=== PATIENT | female | born 1935 | race Caucasian/White ===

== ENCOUNTER 2024-04-19 08:33 | Inpatient (IN) | payer MEDICARE, BC ==
[~2024-04-19] VITALS: Ht 162.6 cm; Wt 54.9 kg
[~2024-04-19 08:33] MED LIST: AMOX1TAB15 PO
[2024-04-19] MEDS: IV NS 0.9% 1,000 ML BAG IV ONE (09:06)
[2024-04-19 09:23] LABS: BASOPHILS # (AUTO) 0.1 K/uL (0.0-0.2); BASOPHILS % (AUTO) 0.5 % (0.0-2.0); EOSINOPHILS % (AUTO) 0.1 % (0.0-6.0); HEMATOCRIT 33 % (33-45); HEMOGLOBIN 10.7 g/dL (11.5-14.8); LYMPHOCYTES % (AUTO) 5.8 % (20.0-44.0); MEAN CORPUSCULAR HEMOGLOBIN 28 PG (26.0-33.0); MEAN CORPUSCULAR HGB CONC 32 g/dl (31.0-36.0); MEAN CORPUSCULAR VOLUME 86 fL (82-100); MONOCYTES # (AUTO) 1.4 K/uL (0.1-1.30); MONOCYTES % (AUTO) 7.6 % (2.0-12.0); NEUTROPHILS # (AUTO) 15.4 K/uL (1.8-8.9); PLATELET COUNT (AUTO) 236 K/uL (150-450); RED BLOOD CELL COUNT(AUTO) 3.87 MIL/uL (4.0-5.2); RED CELL DISTRIBUTION WIDTH 19.4 % (11.5-15.0)
[2024-04-19 09:36] LABS: CALCIUM, SERUM 10.6 mg/dL (8.5-10.1); CARBON DIOXIDE 31 mmol/L (21-32); CHLORIDE 107 mmol/L (98-107); CREATININE 0.6 mg/dL (0.6-1.3); GLUCOSE 133 mg/dL (74-106); POTASSIUM 3.2 mmol/L (3.5-5.1); SODIUM SERUM 144 mmol/L (136-145); UREA NITROGEN, BLOOD 25 mg/dL (7-18)
[2024-04-19 09:37] LABS: SERUM AMMONIA 19 umol/L (11-32)
[2024-04-19 09:41] LABS: INR 1.06 (0.91-1.10); PARTIAL THROMBOPLASTIN TIME 25.5 SEC (24.3-34.3); PROTHROMBIN TIME 11.2 SECS (9.2-11.1)
[2024-04-19 09:44] LABS: LACTIC ACID 0.9 mmol/L (0.4-2.0)
[2024-04-19 09:50] LABS: ALANINE AMINOTRANSFERASE 13 U/L (12-78); ALBUMIN 1.6 g/dL (3.4-5.0); ALCOHOL, BLOOD < 3 mg/dL (0-10); ALKALINE PHOSPHATASE 186 U/L (46-116); ASPARTATE AMINOTRANSFERASE 8 U/L (15-37); BILIRUBIN,DIRECT 0.2 mg/dL (0.0-0.2); BILIRUBIN,TOTAL 0.3 mg/dL (0.2-1.0); TOTAL PROTEIN, SERUM 6.3 g/dL (6.4-8.2)
[2024-04-19] MEDS: PIPERACILLIN /TAZOBACTAM 3.375 G in IV D5W 50 ML IV ONE (10:05)
[2024-04-19] MEDS: VANCOMYCIN 1 GM in IV D5W 250 ML IV ONE (10:33)
[2024-04-19 10:35] LABS: APPEARANCE,URINE Slightly Cloudy (CLEAR); BILIRUBIN,URINE SMALL (NEGATIVE); BLOOD, URINE Trace-intact Ery/uL (NEGATIVE); COLOR,URINE YELLOW (YELLOW); KETONES,URINE Negative (NEGATIVE); LEUKOCYTE ESTERASE ,URINE Moderate (NEGATIVE); NITRITE, URINE Negative (NEGATIVE); PH,URINE 5.5 (5.0-8.0); PROTEIN,URINE 30 mg/dl (NEGATIVE); UGLUCOSE Negative (NEGATIVE); UROBILINOGEN,URINE 0.2 EU/dL (0.2)
[2024-04-19 10:47] LABS: AMPHETAMINE, URINE NEGATIVE (NEGATIVE); BARBITURATE, URINE NEGATIVE (NEGATIVE); BENZODIAZEPINE, URINE NEGATIVE (NEGATIVE); CANNABINOID, URINE NEGATIVE (NEGATIVE); COCCAINE, URINE NEGATIVE (NEGATIVE); OPIATE, URINE NEGATIVE (NEGATIVE); PHENCYCLIDINE SCREEN,URINE NEGATIVE (NEGATIVE)
[2024-04-19 10:51] LABS: ADD URINE CULTURE YES; BACTERIA,URINE 1+ /HPF (None Seen); WBC,URINE 21-50 /HPF (0-3)
[2024-04-19] MEDS ORDERED: CALC3.7S NS (11:19)
[2024-04-19] MEDS ORDERED: UBID200C35 PO (11:19)
[2024-04-19] MEDS ORDERED: FERR325T23 PO (11:19)
[2024-04-19] MEDS ORDERED: FURO20TA4 PO (11:19)
[2024-04-19] MEDS ORDERED: AMLO-213 PO (11:19)
[2024-04-19] MEDS ORDERED: ASPI-1420 PO (11:19)
[2024-04-19] MEDS ORDERED: ASCO-352 PO (11:19)
[2024-04-19] MEDS ORDERED: ACET325T53 PO ×2 (11:19)
[2024-04-19] MEDS ORDERED: ZINC57OI4 TP (11:19)
[2024-04-19] MEDS ORDERED: INSU100V39 SQ (11:19)
[2024-04-19] MEDS ORDERED: ZINC220C6 PO (11:19)
[2024-04-19] MEDS ORDERED: SENN8.6T19 PO (11:19)
[2024-04-19] MEDS ORDERED: ONDA4TAB11 PO (11:19)
[2024-04-19] MEDS ORDERED: GUAI600T31 PO (11:19)
[2024-04-19] MEDS ORDERED: MULT-213 PO (11:19)
[2024-04-19] MEDS ORDERED: ENOX30DI5 SQ (11:19)
[2024-04-19] MEDS ORDERED: METO25TA4 PO (11:19)
[2024-04-19] MEDS ORDERED: METF-440 PO (11:19)
[2024-04-19] MEDS ORDERED: VITS42.53 TP (11:19)
[2024-04-19] MEDS ORDERED: CLON0.1T PO (11:19)
[2024-04-20] MEDS: VANCOMYCIN 1 GM in IV D5W 250 ML IV ONE (07:23)
[2024-04-20] MEDS: PIPERACILLIN /TAZOBACTAM 3.375 G in IV D5W 50 ML IV ONE (07:30)
[2024-04-20] MEDS ORDERED: ACETAMINOPHEN 325 MG TABLET PO PRN (10:00)
[2024-04-20] MEDS ORDERED: ONDANSETRON HCL/PF 4 MG/2 ML VIAL IVP PRN (10:00)
[2024-04-20] MEDS ORDERED: IV NS 0.9% 1,000 ML IV PRN (10:00)
[2024-04-20] MEDS ORDERED: DEXTROSE 50%-WATER 50 ML DISP.SYRIN IV PRN (10:30)
[2024-04-20] MEDS: ENSURE ENLIVE 237 ML LIQUID (VANILLA) PO SCH (13:00)
[2024-04-20] MEDS ORDERED: FUROSEMIDE 20 MG/2 ML VIAL ONE (13:06)
[2024-04-20] MEDS: FUROSEMIDE 20 MG/2 ML VIAL IV ONE (13:10)
[2024-04-20] MEDS: ZOSYN IVPB 3.375 G in IV D5W 50ml IV SCH (18:43)
[2024-04-20 18:56] VITALS: BP 118/63; TEMP 96.5; O2SAT 96
[2024-04-20] MEDS: BLOOD SUGAR DIAGNOSTIC 1 EACH STRIP IN SCH (19:33)
[2024-04-20 20:00] VITALS: BP 143/67; TEMP 97.8; O2SAT 95
[2024-04-20] MEDS: CIPROFLOXACIN HCL 0.3% 5 ML BOTTLE OT SCH (21:30)
[2024-04-20] MEDS: ENOXAPARIN SODIUM 40 MG/0.4 ML DISP.SYRIN SQ SCH (22:27)
[2024-04-21] VITALS: BP 145/60; TEMP 97.2; O2SAT 94
[2024-04-21] MEDS: INSULIN REGULAR, HUMAN 100 UNIT/ML 3 ML VIAL SQ PRN (00:28)
[2024-04-21] MEDS: POTASSIUM CHLORIDE 20 MEQ POWDER PACKET PO ONE (02:18)
[2024-04-21 04:00] VITALS: BP 157/54; TEMP 97.2; O2SAT 92
[2024-04-21] MEDS: VANCOMYCIN 1 GM in IV D5W 250ml IV SCH (05:32)
[2024-04-21 07:25] LABS: BASOPHILS % (AUTO) 0.1 % (0.0-2.0); EOSINOPHILS # (AUTO) 0.1 K/uL (0.0-0.7); EOSINOPHILS % (AUTO) 0.4 % (0.0-6.0); HEMATOCRIT 31 % (33-45); HEMOGLOBIN 10.1 g/dL (11.5-14.8); LYMPHOCYTES # (AUTO) 0.5 K/uL (0.8-4.8); LYMPHOCYTES % (AUTO) 4.2 % (20.0-44.0); MEAN CORPUSCULAR HEMOGLOBIN 28 PG (26.0-33.0); MEAN CORPUSCULAR HGB CONC 32 g/dl (31.0-36.0); MEAN CORPUSCULAR VOLUME 87 fL (82-100); MONOCYTES # (AUTO) 0.8 K/uL (0.1-1.30); MONOCYTES % (AUTO) 6.6 % (2.0-12.0); NEUTROPHILS # (AUTO) 10.8 K/uL (1.8-8.9); NEUTROPHILS % (AUTO) 88.7 % (43.0-81.0); PLATELET COUNT (AUTO) 284 K/uL (150-450); RED BLOOD CELL COUNT(AUTO) 3.62 MIL/uL (4.0-5.2); RED CELL DISTRIBUTION WIDTH 18.4 % (11.5-15.0); WHITE BLOOD COUNT (AUTO) 12.1 K/uL (4.3-11.0)
[2024-04-21 07:49] LABS: CALCIUM, SERUM 9.8 mg/dL (8.5-10.1); CREATININE 0.8 mg/dL (0.6-1.3); MAGNESIUM 1.9 mg/dL (1.8-2.4); POTASSIUM 4.1 mmol/L (3.5-5.1)
[2024-04-21 08:00] VITALS: BP 118/54; TEMP 97.5; O2SAT 92
[2024-04-21 08:03] LABS: PHOSPHORUS 2.8 mg/dL (2.5-4.9)
[2024-04-21] MEDS: ASPIRIN EC 81 MG TABLET.DR PO SCH (08:34)
[2024-04-21] MEDS: ZINC SULFATE 220 MG CAPSULE PO SCH (08:34)
[2024-04-21] MEDS: MULTIVITAMIN/LUTEIN/MINERALS 1 TAB PO SCH (08:34)
[2024-04-21] MEDS: ASCORBIC ACID 500 MG TABLET PO SCH (08:34)
[2024-04-21] MEDS: FERROUS SULFATE (325 MG) 325 MG/TAB TABLET PO SCH (08:34)
[2024-04-21] MEDS: SENNOSIDES 8.6 MG TABLET PO SCH (08:34)
[2024-04-21] MEDS: METOPROLOL SUCCINATE 25 MG TAB.SR.24H PO SCH (08:35)
[2024-04-21] MEDS: AMLODIPINE BESYLATE 10 MG TABLET PO SCH (08:37)
[2024-04-21] MEDS: CALCITONIN,SALMON,SYNTHETIC 3.7 ML SPRAY.PUMP NS SCH (08:40)
[2024-04-21 12:00] VITALS: BP 128/58; TEMP 97.5; O2SAT 92
[2024-04-21 16:00] VITALS: BP 134/62; TEMP 97.8; O2SAT 92
[2024-04-21 20:00] VITALS: BP 158/62; TEMP 96.8; O2SAT 96
[2024-04-21] MEDS: CIPROFLOXACIN HCL 0.3% 5 ML BOTTLE EACHEYE SCH (22:00)
[2024-04-21] MEDS: FLUCONAZOLE (100 MG) 100 MG TABLET PO SCH (22:41)
[2024-04-22] VITALS (7 sets, daily range): BP systolic 149–172; BP diastolic 66–74; TEMP 94.4–98.1; O2SAT 90–98
[2024-04-22 07:22] LABS: CALCIUM, SERUM 9.7 mg/dL (8.5-10.1); CREATININE 0.6 mg/dL (0.6-1.3); POTASSIUM 3.7 mmol/L (3.5-5.1)
[2024-04-22] MEDS ORDERED: CALCITONIN,SALMON,SYNTHETIC 3.7 ML SPRAY.PUMP NS SCH (09:00)
[2024-04-22 15:26] LABS: ABG BASE EXCESS 9.2 mmol/L; ABG OXYGEN SATURATION 95.8 % (92.0-98.5); ABG PCO2 77.2 mmHg (35.0-45.0); ABG PH 7.308 (7.350-7.450); ABG PO2 82.7 mmHg (75.0-100.0); ABG TOTAL HEMOGLOBIN 11.1 G/dL (12.0-16.0); AaDO2 113.7 mmHg; COHb 0.4 % (0.5-1.5); MetHb 0.1 % (0.0-1.5); O2Hb 95.3 % (94.0-97.0); SITE, ABG Right Radial; VENT MODE, BG 5L NASAL CANNULA
[2024-04-22] MEDS ORDERED: CLOTRIMAZOLE/BETAMETASONE DIPROPIONATE 15 GM TUBE TP SCH (17:00)
[2024-04-22] MEDS: CLOTRIMAZOLE/BETAMETASONE DIPROPIONATE 15 GM TUBE TP SCH (21:08)
[2024-04-23] VITALS (27 sets, daily range): BP systolic 87–165; BP diastolic 50–105; TEMP 96.7–98.3; O2SAT 90–99
[2024-04-23] MEDS: VANCOMYCIN 750 MG in IV D5W 250 ML IV SCH (05:58)
[2024-04-23 07:27] LABS: BASOPHILS % (AUTO) 0.3 % (0.0-2.0); EOSINOPHILS # (AUTO) 0.1 K/uL (0.0-0.7); EOSINOPHILS % (AUTO) 1.1 % (0.0-6.0); HEMATOCRIT 34 % (33-45); LYMPHOCYTES # (AUTO) 0.8 K/uL (0.8-4.8); LYMPHOCYTES % (AUTO) 7.7 % (20.0-44.0); MEAN CORPUSCULAR HEMOGLOBIN 28 PG (26.0-33.0); MEAN CORPUSCULAR HGB CONC 32 g/dl (31.0-36.0); MEAN CORPUSCULAR VOLUME 86 fL (82-100); MONOCYTES # (AUTO) 0.9 K/uL (0.1-1.30); MONOCYTES % (AUTO) 8.9 % (2.0-12.0); NEUTROPHILS # (AUTO) 8.2 K/uL (1.8-8.9); PLATELET COUNT (AUTO) 231 K/uL (150-450); RED BLOOD CELL COUNT(AUTO) 3.95 MIL/uL (4.0-5.2); RED CELL DISTRIBUTION WIDTH 18.2 % (11.5-15.0)
[2024-04-23 08:13] LABS: CALCIUM, SERUM 9.1 mg/dL (8.5-10.1); CARBON DIOXIDE 36 mmol/L (21-32); CHLORIDE 103 mmol/L (98-107); CREATININE 0.5 mg/dL (0.6-1.3); GLUCOSE 153 mg/dL (74-106); MAGNESIUM 1.7 mg/dL (1.8-2.4); POTASSIUM 3.4 mmol/L (3.5-5.1); SODIUM SERUM 145 mmol/L (136-145); UREA NITROGEN, BLOOD 20 mg/dL (7-18)
[2024-04-23] MEDS: FUROSEMIDE 20 MG/2 ML VIAL IV ONE (08:37)
[2024-04-23] MEDS: PROSOURCE / PROSTAT (PYXIS) 30 ML UDC PO SCH (09:00)
[2024-04-23] MEDS: GLUCERNA SHAKE 237 ML CAN PO SCH (11:00)
[2024-04-23] MEDS: Magnesium 1GM/D5W 100ML PREMIX 100 ML IV SCH (11:22)
[2024-04-23] MEDS: POTASSIUM CL. PREMIX PERIPHER. 50 ML IV SCH (11:41)
[2024-04-23] MEDS: K PHOS NEUTRAL 250 MG TABLET PO ONE (16:24)
[2024-04-24] VITALS (25 sets, daily range): BP systolic 96–154; BP diastolic 42–85; TEMP 97.5–98; O2SAT 92–100
[2024-04-24 05:09] LABS: BASOPHILS % (AUTO) 0.4 % (0.0-2.0); EOSINOPHILS # (AUTO) 0.1 K/uL (0.0-0.7); EOSINOPHILS % (AUTO) 0.9 % (0.0-6.0); HEMATOCRIT 32 % (33-45); HEMOGLOBIN 10.3 g/dL (11.5-14.8); LYMPHOCYTES # (AUTO) 0.9 K/uL (0.8-4.8); LYMPHOCYTES % (AUTO) 9.5 % (20.0-44.0); MEAN CORPUSCULAR HEMOGLOBIN 28 PG (26.0-33.0); MEAN CORPUSCULAR HGB CONC 32 g/dl (31.0-36.0); MEAN CORPUSCULAR VOLUME 85 fL (82-100); MONOCYTES # (AUTO) 0.9 K/uL (0.1-1.30); MONOCYTES % (AUTO) 9.6 % (2.0-12.0); NEUTROPHILS # (AUTO) 7.7 K/uL (1.8-8.9); NEUTROPHILS % (AUTO) 79.6 % (43.0-81.0); PLATELET COUNT (AUTO) 225 K/uL (150-450); RED BLOOD CELL COUNT(AUTO) 3.73 MIL/uL (4.0-5.2); RED CELL DISTRIBUTION WIDTH 18.2 % (11.5-15.0); WHITE BLOOD COUNT (AUTO) 9.6 K/uL (4.3-11.0)
[2024-04-24 05:25] LABS: CALCIUM, SERUM 10.5 mg/dL (8.5-10.1); CHLORIDE 101 mmol/L (98-107); CREATININE 0.5 mg/dL (0.6-1.3); GLUCOSE 101 mg/dL (74-106); PHOSPHORUS 2.1 mg/dL (2.5-4.9); POTASSIUM 3.6 mmol/L (3.5-5.1); SODIUM SERUM 144 mmol/L (136-145); UREA NITROGEN, BLOOD 21 mg/dL (7-18)
[2024-04-24 05:38] LABS: CARBON DIOXIDE 44 mmol/L (21-32)
[2024-04-24] MEDS: NEUTRA PHOS 1 POWD.PACKET PO ONE (08:45)
[2024-04-24] MEDS: FUROSEMIDE 20 MG/2 ML VIAL IV SCH (11:04)
[2024-04-24] MEDS: acetaZOLAMIDE SODIUM 500 MG/VIAL VIAL IV ONE (11:05)
[2024-04-25] VITALS (24 sets, daily range): BP systolic 85–154; BP diastolic 45–78; TEMP 97.9–98.9; O2SAT 92–100
[2024-04-25] MEDS: IV NS 0.9% 250 ML IV PRN (04:44)
[2024-04-25 06:05] LABS: CALCIUM, SERUM 10.8 mg/dL (8.5-10.1); CHLORIDE 100 mmol/L (98-107); CREATININE 0.6 mg/dL (0.6-1.3); GLUCOSE 135 mg/dL (74-106); POTASSIUM 3.7 mmol/L (3.5-5.1); SODIUM SERUM 146 mmol/L (136-145); UREA NITROGEN, BLOOD 24 mg/dL (7-18)
[2024-04-25 06:08] LABS: CARBON DIOXIDE 44 mmol/L (21-32)
[2024-04-25] MEDS: NA PHOS,M-B/NA PHOS,DI-BA 1 EA ENEMA RC PRN (08:00)
[2024-04-25] MEDS: THERAHONEY GEL 1.5 OZ TUBE TP SCH (10:00)
[2024-04-25] MEDS: ENSURE ENLIVE CHOC 237 ML CAN PO SCH (13:30)
[2024-04-25] MEDS: DOCUSATE SODIUM 100 MG CAPSULE PO SCH (16:41)
[2024-04-25] MEDS: MEGESTROL ACETATE SUSP 400 MG/10 ML UDC PO SCH (16:41)
[2024-04-25] MEDS: MEROPENEM 1 G in IV NS 0.9% 100 ML IV SCH (16:41)
[2024-04-25] MEDS: POLYETHYLENE GLYCOL 3350 17 GM POWD.PACK PO SCH (16:41)
[2024-04-26] VITALS (26 sets, daily range): BP systolic 83–136; BP diastolic 42–78; TEMP 97.2–98.1; O2SAT 91–100
[2024-04-26 04:52] LABS: BASOPHILS % (AUTO) 0.3 % (0.0-2.0); EOSINOPHILS # (AUTO) 0.1 K/uL (0.0-0.7); EOSINOPHILS % (AUTO) 0.4 % (0.0-6.0); HEMATOCRIT 29 % (33-45); HEMOGLOBIN 9.3 g/dL (11.5-14.8); LYMPHOCYTES # (AUTO) 1.2 K/uL (0.8-4.8); LYMPHOCYTES % (AUTO) 9.7 % (20.0-44.0); MEAN CORPUSCULAR HEMOGLOBIN 28 PG (26.0-33.0); MEAN CORPUSCULAR HGB CONC 33 g/dl (31.0-36.0); MEAN CORPUSCULAR VOLUME 85 fL (82-100); MONOCYTES # (AUTO) 0.9 K/uL (0.1-1.30); MONOCYTES % (AUTO) 7.4 % (2.0-12.0); NEUTROPHILS # (AUTO) 10.3 K/uL (1.8-8.9); NEUTROPHILS % (AUTO) 82.2 % (43.0-81.0); PLATELET COUNT (AUTO) 166 K/uL (150-450); RED BLOOD CELL COUNT(AUTO) 3.36 MIL/uL (4.0-5.2); WHITE BLOOD COUNT (AUTO) 12.5 K/uL (4.3-11.0)
[2024-04-26 05:02] LABS: CALCIUM, SERUM 10.8 mg/dL (8.5-10.1); CREATININE 0.8 mg/dL (0.6-1.3); MAGNESIUM 1.9 mg/dL (1.8-2.4); PHOSPHORUS 3.7 mg/dL (2.5-4.9)
[2024-04-26 05:10] LABS: POTASSIUM 2.5 mmol/L (3.5-5.1)
[2024-04-26] MEDS: VANCOMYCIN 750 MG in IV D5W 250 ML IV SCH (06:07)
[2024-04-26] MEDS: POTASSIUM CL. PREMIX PERIPHER. 50 ML IV SCH (06:25)
[2024-04-26 08:39] LABS: ABG BASE EXCESS 18.6 mmol/L; ABG OXYGEN SATURATION 96.4 % (92.0-98.5); ABG PCO2 64.1 mmHg (35.0-45.0); ABG PH 7.467 (7.350-7.450); ABG PO2 78.6 mmHg (75.0-100.0); ABG TOTAL HEMOGLOBIN 11.1 G/dL (12.0-16.0); AaDO2 96.4 mmHg; COHb 0.7 % (0.5-1.5); O2Hb 95.7 % (94.0-97.0); SITE, ABG Right Radial; VENT MODE, BG BIPAP 15/5 30%
[2024-04-26] MEDS: POTASSIUM CHLORIDE 20 MEQ TAB.PRT.SR PO SCH (09:54)
[2024-04-27] VITALS (24 sets, daily range): BP systolic 112–142; BP diastolic 42–97; TEMP 97.2–97.9; O2SAT 90–99
[2024-04-27 04:45] LABS: BASOPHILS % (AUTO) 0.4 % (0.0-2.0); EOSINOPHILS # (AUTO) 0.1 K/uL (0.0-0.7); EOSINOPHILS % (AUTO) 1.1 % (0.0-6.0); HEMATOCRIT 27 % (33-45); HEMOGLOBIN 8.8 g/dL (11.5-14.8); LYMPHOCYTES # (AUTO) 1.1 K/uL (0.8-4.8); LYMPHOCYTES % (AUTO) 11.4 % (20.0-44.0); MEAN CORPUSCULAR HEMOGLOBIN 28 PG (26.0-33.0); MEAN CORPUSCULAR HGB CONC 33 g/dl (31.0-36.0); MEAN CORPUSCULAR VOLUME 85 fL (82-100); MONOCYTES # (AUTO) 0.8 K/uL (0.1-1.30); MONOCYTES % (AUTO) 8.5 % (2.0-12.0); NEUTROPHILS # (AUTO) 7.6 K/uL (1.8-8.9); NEUTROPHILS % (AUTO) 78.6 % (43.0-81.0); PLATELET COUNT (AUTO) 168 K/uL (150-450); RED BLOOD CELL COUNT(AUTO) 3.16 MIL/uL (4.0-5.2); RED CELL DISTRIBUTION WIDTH 18.9 % (11.5-15.0); WHITE BLOOD COUNT (AUTO) 9.6 K/uL (4.3-11.0)
[2024-04-27 05:33] LABS: ALANINE AMINOTRANSFERASE 10 U/L (12-78); ALKALINE PHOSPHATASE 130 U/L (46-116); ASPARTATE AMINOTRANSFERASE 6 U/L (15-37); BILIRUBIN,TOTAL 0.3 mg/dL (0.2-1.0); CALCIUM, SERUM 10.9 mg/dL (8.5-10.1); CHLORIDE 109 mmol/L (98-107); CREATININE 0.8 mg/dL (0.6-1.3); GLUCOSE 119 mg/dL (74-106); MAGNESIUM 2.1 mg/dL (1.8-2.4); PHOSPHORUS 3.2 mg/dL (2.5-4.9); SODIUM SERUM 151 mmol/L (136-145); TOTAL PROTEIN, SERUM 5.2 g/dL (6.4-8.2); UREA NITROGEN, BLOOD 29 mg/dL (7-18)
[2024-04-27 05:39] LABS: ALBUMIN 1.2 g/dL (3.4-5.0); CARBON DIOXIDE 41 mmol/L (21-32)
[2024-04-27] MEDS: ALBUMIN 25% 25 GM in PREMIX 1 EA IV SCH (06:40)
[2024-04-27] MEDS: ALBUMIN 25% 100 ML IV ONE (06:41)
[2024-04-27] MEDS: IV D5W 1,000 ML IV SCH (07:23)
[2024-04-27] MEDS: IV D5W 1,000 ML IV PRN (08:32)
[2024-04-27] MEDS: Z GUARD REMEDY 4 OZ OINT TP PRN (08:36)
[2024-04-28] VITALS (24 sets, daily range): BP systolic 105–148; BP diastolic 42–98; TEMP 97–97.8; O2SAT 94–100
[2024-04-28 04:31] LABS: BASOPHILS % (AUTO) 0.4 % (0.0-2.0); EOSINOPHILS # (AUTO) 0.1 K/uL (0.0-0.7); EOSINOPHILS % (AUTO) 1.4 % (0.0-6.0); HEMATOCRIT 25 % (33-45); HEMOGLOBIN 8.4 g/dL (11.5-14.8); LYMPHOCYTES % (AUTO) 11.8 % (20.0-44.0); MEAN CORPUSCULAR HEMOGLOBIN 28 PG (26.0-33.0); MEAN CORPUSCULAR HGB CONC 34 g/dl (31.0-36.0); MEAN CORPUSCULAR VOLUME 85 fL (82-100); MONOCYTES # (AUTO) 0.8 K/uL (0.1-1.30); MONOCYTES % (AUTO) 9.2 % (2.0-12.0); NEUTROPHILS # (AUTO) 6.5 K/uL (1.8-8.9); NEUTROPHILS % (AUTO) 77.2 % (43.0-81.0); PLATELET COUNT (AUTO) 155 K/uL (150-450); RED BLOOD CELL COUNT(AUTO) 2.94 MIL/uL (4.0-5.2); RED CELL DISTRIBUTION WIDTH 17.9 % (11.5-15.0); WHITE BLOOD COUNT (AUTO) 8.4 K/uL (4.3-11.0)
[2024-04-28 04:55] LABS: CALCIUM, SERUM 10.9 mg/dL (8.5-10.1); CARBON DIOXIDE 39 mmol/L (21-32); CHLORIDE 101 mmol/L (98-107); CREATININE 0.7 mg/dL (0.6-1.3); GLUCOSE 97 mg/dL (74-106); POTASSIUM 4.6 mmol/L (3.5-5.1); SODIUM SERUM 141 mmol/L (136-145); UREA NITROGEN, BLOOD 27 mg/dL (7-18)
[2024-04-29] VITALS (16 sets, daily range): BP systolic 104–134; BP diastolic 48–88; TEMP 98.2–99.1; O2SAT 95–98
[2024-04-29 05:15] LABS: BASOPHILS % (AUTO) 0.3 % (0.0-2.0); EOSINOPHILS # (AUTO) 0.1 K/uL (0.0-0.7); EOSINOPHILS % (AUTO) 1.2 % (0.0-6.0); HEMATOCRIT 25 % (33-45); HEMOGLOBIN 8.4 g/dL (11.5-14.8); LYMPHOCYTES # (AUTO) 1.3 K/uL (0.8-4.8); LYMPHOCYTES % (AUTO) 13.7 % (20.0-44.0); MEAN CORPUSCULAR HEMOGLOBIN 29 PG (26.0-33.0); MEAN CORPUSCULAR HGB CONC 34 g/dl (31.0-36.0); MEAN CORPUSCULAR VOLUME 85 fL (82-100); MONOCYTES # (AUTO) 0.8 K/uL (0.1-1.30); MONOCYTES % (AUTO) 8.2 % (2.0-12.0); NEUTROPHILS # (AUTO) 7.1 K/uL (1.8-8.9); NEUTROPHILS % (AUTO) 76.6 % (43.0-81.0); PLATELET COUNT (AUTO) 163 K/uL (150-450); RED BLOOD CELL COUNT(AUTO) 2.95 MIL/uL (4.0-5.2); RED CELL DISTRIBUTION WIDTH 18.2 % (11.5-15.0); WHITE BLOOD COUNT (AUTO) 9.2 K/uL (4.3-11.0)
[2024-04-29 05:26] LABS: CALCIUM, SERUM 9.7 mg/dL (8.5-10.1); CARBON DIOXIDE 35 mmol/L (21-32); CHLORIDE 98 mmol/L (98-107); CREATININE 0.9 mg/dL (0.6-1.3); GLUCOSE 132 mg/dL (74-106); POTASSIUM 5.2 mmol/L (3.5-5.1); SODIUM SERUM 133 mmol/L (136-145); UREA NITROGEN, BLOOD 32 mg/dL (7-18)
[2024-04-29] MEDS: GLUCERNA SHAKE 237 ML CAN PO SCH (12:02)
[2024-04-29] MEDS ORDERED: DEXTROSE 50%-WATER 50 ML DISP.SYRIN IV PRN (12:30)
[2024-04-29] MEDS: BLOOD SUGAR DIAGNOSTIC 1 EACH STRIP IN SCH (17:32)
[2024-04-29] MEDS: INSULIN REGULAR, HUMAN 100 UNIT/ML 3 ML VIAL SQ PRN (17:40)
[2024-04-29] MEDS: VANCOMYCIN 750 MG in IV D5W 250 ML IV SCH (18:02)
[2024-04-30] VITALS (7 sets, daily range): BP systolic 110–133; BP diastolic 42–63; TEMP 97.5–98.7; O2SAT 95–100
[2024-04-30 07:37] LABS: CALCIUM, SERUM 9.7 mg/dL (8.5-10.1); CARBON DIOXIDE 33 mmol/L (21-32); CHLORIDE 99 mmol/L (98-107); CREATININE 0.9 mg/dL (0.6-1.3); GLUCOSE 100 mg/dL (74-106); POTASSIUM 5.2 mmol/L (3.5-5.1); SODIUM SERUM 135 mmol/L (136-145); UREA NITROGEN, BLOOD 34 mg/dL (7-18)
[2024-04-30 07:51] LABS: BASOPHILS % (AUTO) 0.3 % (0.0-2.0); EOSINOPHILS # (AUTO) 0.1 K/uL (0.0-0.7); EOSINOPHILS % (AUTO) 0.7 % (0.0-6.0); HEMATOCRIT 28 % (33-45); LYMPHOCYTES % (AUTO) 13.3 % (20.0-44.0); MEAN CORPUSCULAR HEMOGLOBIN 28 PG (26.0-33.0); MEAN CORPUSCULAR HGB CONC 33 g/dl (31.0-36.0); MEAN CORPUSCULAR VOLUME 85 fL (82-100); MONOCYTES # (AUTO) 0.7 K/uL (0.1-1.30); MONOCYTES % (AUTO) 9.1 % (2.0-12.0); NEUTROPHILS # (AUTO) 5.8 K/uL (1.8-8.9); NEUTROPHILS % (AUTO) 76.6 % (43.0-81.0); PLATELET COUNT (AUTO) 162 K/uL (150-450); RED BLOOD CELL COUNT(AUTO) 3.25 MIL/uL (4.0-5.2); RED CELL DISTRIBUTION WIDTH 18.3 % (11.5-15.0); WHITE BLOOD COUNT (AUTO) 7.6 K/uL (4.3-11.0)
[2024-04-30] MEDS: FUROSEMIDE 20 MG/2 ML VIAL IV SCH (16:53)
[2024-05-01] VITALS: BP 105/76; TEMP 97.7; O2SAT 98
[2024-05-01 04:00] VITALS: BP 124/55; TEMP 98.1; O2SAT 98
[2024-05-01 06:56] LABS: BASOPHILS % (AUTO) 0.3 % (0.0-2.0); EOSINOPHILS # (AUTO) 0.1 K/uL (0.0-0.7); EOSINOPHILS % (AUTO) 0.6 % (0.0-6.0); HEMATOCRIT 25 % (33-45); HEMOGLOBIN 8.3 g/dL (11.5-14.8); LYMPHOCYTES # (AUTO) 0.9 K/uL (0.8-4.8); LYMPHOCYTES % (AUTO) 9.3 % (20.0-44.0); MEAN CORPUSCULAR HEMOGLOBIN 28 PG (26.0-33.0); MEAN CORPUSCULAR HGB CONC 33 g/dl (31.0-36.0); MEAN CORPUSCULAR VOLUME 85 fL (82-100); MONOCYTES # (AUTO) 0.7 K/uL (0.1-1.30); MONOCYTES % (AUTO) 7.2 % (2.0-12.0); NEUTROPHILS # (AUTO) 7.8 K/uL (1.8-8.9); NEUTROPHILS % (AUTO) 82.6 % (43.0-81.0); PLATELET COUNT (AUTO) 160 K/uL (150-450); RED BLOOD CELL COUNT(AUTO) 2.99 MIL/uL (4.0-5.2); RED CELL DISTRIBUTION WIDTH 18.2 % (11.5-15.0); WHITE BLOOD COUNT (AUTO) 9.4 K/uL (4.3-11.0)
[2024-05-01 07:20] LABS: CALCIUM, SERUM 9.6 mg/dL (8.5-10.1); CARBON DIOXIDE 37 mmol/L (21-32); CHLORIDE 100 mmol/L (98-107); CREATININE 0.8 mg/dL (0.6-1.3); GLUCOSE 113 mg/dL (74-106); POTASSIUM 5.3 mmol/L (3.5-5.1); SODIUM SERUM 136 mmol/L (136-145); UREA NITROGEN, BLOOD 40 mg/dL (7-18)
[2024-05-01 08:00] VITALS: BP 121/53; TEMP 97.9; O2SAT 98
[2024-05-01] MEDS: SODIUM POLYSTYRENE SULFONATE 15 G/60 ML BOTTLE PO ONE (11:45)
[2024-05-01] MEDS ORDERED: IOHEXOL-300 100 ML VIAL IV ONE (11:53)
[2024-05-01] MEDS ORDERED: IV NS 0.9% 250 ML IV ONE (11:54)
[2024-05-01] MEDS ORDERED: CT SWABBABLE VALVE TRANS SET 1 EA INFUS.SET MC ONE (11:54)
[2024-05-01 12:00] VITALS: BP 118/54; TEMP 97.9; O2SAT 95
[2024-05-01 16:00] VITALS: BP 117/56; TEMP 97.9; O2SAT 95
[2024-05-01] MEDS: ENSURE ENLIVE CHOC 237 ML CAN PO SCH (16:26)
[2024-05-01 20:00] VITALS: BP 130/61; TEMP 99.1; O2SAT 96
[2024-05-02] VITALS (7 sets, daily range): BP systolic 114–137; BP diastolic 51–70; TEMP 97.5–98.8; O2SAT 93–100
[2024-05-02 07:50] LABS: BASOPHILS # (AUTO) 0.1 K/uL (0.0-0.2); BASOPHILS % (AUTO) 0.7 % (0.0-2.0); EOSINOPHILS # (AUTO) 0.1 K/uL (0.0-0.7); EOSINOPHILS % (AUTO) 1.2 % (0.0-6.0); HEMATOCRIT 24 % (33-45); HEMOGLOBIN 7.9 g/dL (11.5-14.8); LYMPHOCYTES % (AUTO) 12.7 % (20.0-44.0); MEAN CORPUSCULAR HEMOGLOBIN 28 PG (26.0-33.0); MEAN CORPUSCULAR HGB CONC 33 g/dl (31.0-36.0); MEAN CORPUSCULAR VOLUME 85 fL (82-100); MONOCYTES # (AUTO) 0.7 K/uL (0.1-1.30); MONOCYTES % (AUTO) 8.6 % (2.0-12.0); NEUTROPHILS # (AUTO) 5.9 K/uL (1.8-8.9); NEUTROPHILS % (AUTO) 76.8 % (43.0-81.0); PLATELET COUNT (AUTO) 179 K/uL (150-450); WHITE BLOOD COUNT (AUTO) 7.6 K/uL (4.3-11.0)
[2024-05-02 09:50] LABS: ABG OXYGEN SATURATION 98.9 % (92.0-98.5); ABG PCO2 48.8 mmHg (35.0-45.0); ABG PO2 132.7 mmHg (75.0-100.0); ABG TOTAL HEMOGLOBIN 8.7 G/dL (12.0-16.0); AaDO2 9.4 mmHg; MetHb 0.2 % (0.0-1.5); O2Hb 97.7 % (94.0-97.0); SITE, ABG Right Radial; VENT MODE, BG 2L NC
[2024-05-03] VITALS (7 sets, daily range): BP systolic 118–150; BP diastolic 54–62; TEMP 97.3–98.9; O2SAT 94–98
[2024-05-03 07:09] LABS: BASOPHILS # (AUTO) 0.1 K/uL (0.0-0.2); BASOPHILS % (AUTO) 0.9 % (0.0-2.0); EOSINOPHILS % (AUTO) 0.7 % (0.0-6.0); HEMATOCRIT 25 % (33-45); HEMOGLOBIN 8.3 g/dL (11.5-14.8); LYMPHOCYTES # (AUTO) 0.8 K/uL (0.8-4.8); LYMPHOCYTES % (AUTO) 13.1 % (20.0-44.0); MEAN CORPUSCULAR HEMOGLOBIN 28 PG (26.0-33.0); MEAN CORPUSCULAR HGB CONC 33 g/dl (31.0-36.0); MEAN CORPUSCULAR VOLUME 85 fL (82-100); MONOCYTES # (AUTO) 0.5 K/uL (0.1-1.30); MONOCYTES % (AUTO) 8.7 % (2.0-12.0); NEUTROPHILS # (AUTO) 4.8 K/uL (1.8-8.9); NEUTROPHILS % (AUTO) 76.6 % (43.0-81.0); PLATELET COUNT (AUTO) 200 K/uL (150-450); RED BLOOD CELL COUNT(AUTO) 2.96 MIL/uL (4.0-5.2); RED CELL DISTRIBUTION WIDTH 18.2 % (11.5-15.0); WHITE BLOOD COUNT (AUTO) 6.3 K/uL (4.3-11.0)
[2024-05-03 07:39] LABS: CALCIUM, SERUM 9.4 mg/dL (8.5-10.1); CARBON DIOXIDE 32 mmol/L (21-32); CHLORIDE 100 mmol/L (98-107); CREATININE 0.9 mg/dL (0.6-1.3); GLUCOSE 109 mg/dL (74-106); POTASSIUM 5.6 mmol/L (3.5-5.1); SODIUM SERUM 135 mmol/L (136-145); UREA NITROGEN, BLOOD 48 mg/dL (7-18)
[2024-05-03] MEDS: SODIUM POLYSTYRENE SULFONATE 15 G/60 ML BOTTLE PO ONE (13:00)
[2024-05-04] VITALS (7 sets, daily range): BP systolic 122–154; BP diastolic 50–61; TEMP 97.2–98.5; O2SAT 93–96
[2024-05-04] MEDS: VANCOMYCIN 500 MG in IV D5W 100ml IV SCH (06:20)
[2024-05-04 06:40] LABS: BASOPHILS # (AUTO) 0.1 K/uL (0.0-0.2); BASOPHILS % (AUTO) 0.9 % (0.0-2.0); EOSINOPHILS # (AUTO) 0.1 K/uL (0.0-0.7); EOSINOPHILS % (AUTO) 0.8 % (0.0-6.0); HEMATOCRIT 26 % (33-45); HEMOGLOBIN 8.7 g/dL (11.5-14.8); LYMPHOCYTES % (AUTO) 15.1 % (20.0-44.0); MEAN CORPUSCULAR HEMOGLOBIN 29 PG (26.0-33.0); MEAN CORPUSCULAR HGB CONC 34 g/dl (31.0-36.0); MEAN CORPUSCULAR VOLUME 86 fL (82-100); MONOCYTES # (AUTO) 0.6 K/uL (0.1-1.30); MONOCYTES % (AUTO) 8.6 % (2.0-12.0); NEUTROPHILS # (AUTO) 4.8 K/uL (1.8-8.9); NEUTROPHILS % (AUTO) 74.6 % (43.0-81.0); PLATELET COUNT (AUTO) 244 K/uL (150-450); RED BLOOD CELL COUNT(AUTO) 3.05 MIL/uL (4.0-5.2); RED CELL DISTRIBUTION WIDTH 18.2 % (11.5-15.0); WHITE BLOOD COUNT (AUTO) 6.4 K/uL (4.3-11.0)
[2024-05-04 06:59] LABS: CALCIUM, SERUM 9.4 mg/dL (8.5-10.1); CARBON DIOXIDE 32 mmol/L (21-32); CHLORIDE 102 mmol/L (98-107); CREATININE 0.9 mg/dL (0.6-1.3); GLUCOSE 112 mg/dL (74-106); MAGNESIUM 2.6 mg/dL (1.8-2.4); PHOSPHORUS 4.2 mg/dL (2.5-4.9); POTASSIUM 5.6 mmol/L (3.5-5.1); SODIUM SERUM 137 mmol/L (136-145); UREA NITROGEN, BLOOD 47 mg/dL (7-18)
[2024-05-04] MEDS ORDERED: NEPRO VAN 237 ML CAN PO PRN (10:00)
[2024-05-04] MEDS: HYDROCHLOROTHIAZIDE 25 MG TABLET PO SCH (10:50)
[2024-05-04] MEDS ORDERED: CT SWABBABLE VALVE TRANS SET 1 EA INFUS.SET MC ONE (15:31)
[2024-05-04] MEDS ORDERED: IOHEXOL-300 100 ML VIAL IV ONE (15:31)
[2024-05-04] MEDS ORDERED: IV NS 0.9% 250 ML IV ONE (15:33)
[2024-05-04] MEDS: SODIUM POLYSTYRENE SULFONATE 15 G/60 ML BOTTLE PO ONE (20:49)
[2024-05-05] VITALS (7 sets, daily range): BP systolic 120–137; BP diastolic 55–61; TEMP 97.7–98.6; O2SAT 92–99
[2024-05-05 06:36] LABS: BASOPHILS # (AUTO) 0.1 K/uL (0.0-0.2); BASOPHILS % (AUTO) 1.3 % (0.0-2.0); EOSINOPHILS # (AUTO) 0.1 K/uL (0.0-0.7); EOSINOPHILS % (AUTO) 1.3 % (0.0-6.0); HEMATOCRIT 26 % (33-45); HEMOGLOBIN 8.9 g/dL (11.5-14.8); LYMPHOCYTES % (AUTO) 14.4 % (20.0-44.0); MEAN CORPUSCULAR HEMOGLOBIN 29 PG (26.0-33.0); MEAN CORPUSCULAR HGB CONC 34 g/dl (31.0-36.0); MEAN CORPUSCULAR VOLUME 85 fL (82-100); MONOCYTES # (AUTO) 0.5 K/uL (0.1-1.30); MONOCYTES % (AUTO) 7.2 % (2.0-12.0); NEUTROPHILS # (AUTO) 5.2 K/uL (1.8-8.9); NEUTROPHILS % (AUTO) 75.8 % (43.0-81.0); PLATELET COUNT (AUTO) 275 K/uL (150-450); RED CELL DISTRIBUTION WIDTH 17.8 % (11.5-15.0); WHITE BLOOD COUNT (AUTO) 6.9 K/uL (4.3-11.0)
[2024-05-05 07:51] LABS: CALCIUM, SERUM 9.1 mg/dL (8.5-10.1); CARBON DIOXIDE 29 mmol/L (21-32); CHLORIDE 99 mmol/L (98-107); CREATININE 0.8 mg/dL (0.6-1.3); GLUCOSE 104 mg/dL (74-106); MAGNESIUM 2.5 mg/dL (1.8-2.4); POTASSIUM 4.9 mmol/L (3.5-5.1); SODIUM SERUM 136 mmol/L (136-145)
[2024-05-05 08:06] LABS: UREA NITROGEN, BLOOD 53 mg/dL (7-18)
[2024-05-06] VITALS (8 sets, daily range): BP systolic 115–148; BP diastolic 53–59; TEMP 97.7–98.6; O2SAT 93–100
[2024-05-06 07:09] LABS: CALCIUM, SERUM 9.4 mg/dL (8.5-10.1); CARBON DIOXIDE 35 mmol/L (21-32); CHLORIDE 99 mmol/L (98-107); CREATININE 0.7 mg/dL (0.6-1.3); GLUCOSE 84 mg/dL (74-106); POTASSIUM 5.2 mmol/L (3.5-5.1); SODIUM SERUM 135 mmol/L (136-145); UREA NITROGEN, BLOOD 64 mg/dL (7-18)
[2024-05-06] MEDS: SODIUM POLYSTYRENE SULFONATE 15 G/60 ML BOTTLE PO ONE (11:37)
[2024-05-07] VITALS (8 sets, daily range): BP systolic 127–147; BP diastolic 49–70; TEMP 97.7–98.5; O2SAT 93–96
[2024-05-07 07:53] LABS: BASOPHILS # (AUTO) 0.1 K/uL (0.0-0.2); BASOPHILS % (AUTO) 0.5 % (0.0-2.0); EOSINOPHILS # (AUTO) 0.1 K/uL (0.0-0.7); EOSINOPHILS % (AUTO) 0.7 % (0.0-6.0); HEMATOCRIT 28 % (33-45); HEMOGLOBIN 9.1 g/dL (11.5-14.8); LYMPHOCYTES # (AUTO) 0.9 K/uL (0.8-4.8); MEAN CORPUSCULAR HEMOGLOBIN 28 PG (26.0-33.0); MEAN CORPUSCULAR HGB CONC 33 g/dl (31.0-36.0); MEAN CORPUSCULAR VOLUME 86 fL (82-100); MONOCYTES # (AUTO) 0.7 K/uL (0.1-1.30); NEUTROPHILS # (AUTO) 9.7 K/uL (1.8-8.9); NEUTROPHILS % (AUTO) 84.8 % (43.0-81.0); PLATELET COUNT (AUTO) 285 K/uL (150-450); RED BLOOD CELL COUNT(AUTO) 3.22 MIL/uL (4.0-5.2); RED CELL DISTRIBUTION WIDTH 17.9 % (11.5-15.0); WHITE BLOOD COUNT (AUTO) 11.5 K/uL (4.3-11.0)
[2024-05-07 08:32] LABS: CARBON DIOXIDE 34 mmol/L (21-32); CHLORIDE 100 mmol/L (98-107); CREATININE 0.7 mg/dL (0.6-1.3); GLUCOSE 118 mg/dL (74-106); MAGNESIUM 2.9 mg/dL (1.8-2.4); PHOSPHORUS 4.5 mg/dL (2.5-4.9); POTASSIUM 3.8 mmol/L (3.5-5.1); SODIUM SERUM 139 mmol/L (136-145); UREA NITROGEN, BLOOD 69 mg/dL (7-18)
[2024-05-08] VITALS (7 sets, daily range): BP systolic 122–141; BP diastolic 48–79; TEMP 97.5–98.2; O2SAT 95–98
[2024-05-08 08:10] LABS: BASOPHILS % (AUTO) 0.4 % (0.0-2.0); EOSINOPHILS # (AUTO) 0.1 K/uL (0.0-0.7); EOSINOPHILS % (AUTO) 0.8 % (0.0-6.0); HEMATOCRIT 26 % (33-45); HEMOGLOBIN 8.7 g/dL (11.5-14.8); LYMPHOCYTES # (AUTO) 0.8 K/uL (0.8-4.8); LYMPHOCYTES % (AUTO) 8.9 % (20.0-44.0); MEAN CORPUSCULAR HEMOGLOBIN 29 PG (26.0-33.0); MEAN CORPUSCULAR HGB CONC 34 g/dl (31.0-36.0); MEAN CORPUSCULAR VOLUME 85 fL (82-100); MONOCYTES # (AUTO) 0.6 K/uL (0.1-1.30); MONOCYTES % (AUTO) 6.1 % (2.0-12.0); NEUTROPHILS # (AUTO) 7.7 K/uL (1.8-8.9); NEUTROPHILS % (AUTO) 83.8 % (43.0-81.0); PLATELET COUNT (AUTO) 265 K/uL (150-450); RED BLOOD CELL COUNT(AUTO) 3.04 MIL/uL (4.0-5.2); RED CELL DISTRIBUTION WIDTH 17.8 % (11.5-15.0); WHITE BLOOD COUNT (AUTO) 9.2 K/uL (4.3-11.0)
[2024-05-08 08:39] LABS: ALANINE AMINOTRANSFERASE 63 U/L (12-78); ALBUMIN 1.9 g/dL (3.4-5.0); ALKALINE PHOSPHATASE 234 U/L (46-116); ASPARTATE AMINOTRANSFERASE 30 U/L (15-37); BILIRUBIN,DIRECT 0.1 mg/dL (0.0-0.2); BILIRUBIN,TOTAL 0.3 mg/dL (0.2-1.0); CALCIUM, SERUM 9.9 mg/dL (8.5-10.1); CARBON DIOXIDE 34 mmol/L (21-32); CHLORIDE 100 mmol/L (98-107); CREATININE 0.8 mg/dL (0.6-1.3); GLUCOSE 121 mg/dL (74-106); MAGNESIUM 2.7 mg/dL (1.8-2.4); POTASSIUM 4.5 mmol/L (3.5-5.1); SODIUM SERUM 137 mmol/L (136-145); TOTAL PROTEIN, SERUM 6.3 g/dL (6.4-8.2); UREA NITROGEN, BLOOD 74 mg/dL (7-18)
== END 2024-05-08 20:25 | disposition short-term general hospital (02) | DRG 871 ==
LOC: ER 08:36 → TELE1 04-20 14:48 → TELE-TD 04-20 17:25 → ICU 04-23 08:54 → TELE-TD 04-29 13:57 → TELE1 04-30 07:54
PROVIDERS: ADMIT Nurse Practitioner Acute Care; ATTEND Nurse Practitioner Family
PROC: 5A09457 Assistance with Respiratory Ventilation, 24-96 Consecutive Hours, Continuous Positive Airway Pressure (ICD-10-PCS; principal; 2024-04-23)
DX: A41.9 Sepsis, unspecified organism (principal); E43 Unspecified severe protein-calorie malnutrition; G93.41 Metabolic encephalopathy; I50.31 Acute diastolic (congestive) heart failure; J96.21 Acute and chronic respiratory failure with hypoxia; J69.0 Pneumonitis due to inhalation of food and vomit; J96.22 Acute and chronic respiratory failure with hypercapnia; R65.21 Severe sepsis with septic shock; K11.3 Abscess of salivary gland; B37.49 Other urogenital candidiasis; H70.002 Acute mastoiditis without complications, left ear; L03.211 Cellulitis of face; E87.0 Hyperosmolality and hypernatremia; I13.0 Hypertensive heart and chronic kidney disease with heart failure and stage 1 through stage 4 chronic kidney disease, or unspecified chronic kidney disease; Z20.822 Contact with and (suspected) exposure to COVID-19; E03.9 Hypothyroidism, unspecified; E83.52 Hypercalcemia; E88.09 Other disorders of plasma-protein metabolism, not elsewhere classified; H70.92 Unspecified mastoiditis, left ear; H66.92 Otitis media, unspecified, left ear; I34.0 Nonrheumatic mitral (valve) insufficiency; N18.9 Chronic kidney disease, unspecified; R13.10 Dysphagia, unspecified; Z99.81 Dependence on supplemental oxygen; E05.20 Thyrotoxicosis with toxic multinodular goiter without thyrotoxic crisis or storm; D64.9 Anemia, unspecified; E11.22 Type 2 diabetes mellitus with diabetic chronic kidney disease; E86.9 Volume depletion, unspecified; E87.6 Hypokalemia; L89.156 Pressure-induced deep tissue damage of sacral region; H10.9 Unspecified conjunctivitis; Z68.20 Body mass index [BMI] 20.0-20.9, adult
CPT/HCPCS: 36415; 36600; 70450-TC; 70486-TC; 70487-TC; 70491-TC; 71045-TC; 71250-TC; 74018; 76536-TC; 80048-TC; 80053-TC; 80061-TC; 80076-TC; 80202-TC; 81001; 82140-TC; 82652; 82803-TC; 82962-TC; 83605-TC; 83735-TC; 83880; 83970; 84100-TC; 84132-TC; 84439-TC; 84443-TC; 84484-TC; 85025-TC; 85730-TC; 87040-TC; 87081-TC; 87086-TC; 92526; 92611-TC; 93307-TC; 94660; 94761-TC; 94762-TC; 94799-TC; 97110-TC; 97112-TC; 97530-TC; A4216; A4223; G0378; G0480; J1120; J1650; J1815; J1940; J2185; J2543; J3370; J3371; J3475; J3480; J7030; J7040; J7050; J7060; J7070; P9047; Q9967

== ENCOUNTER 2024-05-15 21:18 | Inpatient (IN) | payer MEDICARE, BC ==
[~2024-05-15] VITALS: Ht 165.1 cm; Wt 52.2 kg
[~2024-05-15 21:18] MED LIST changes: +ACET325T53 PO; +AMLO-213 PO; +ASCO-352 PO; +ASPI-1420 PO; +CALC3.7S NS; +CLON0.1T PO; +ENOX30DI5 SQ; +FERR325T23 PO; +FURO20TA4 PO; +GUAI600T31 PO; +INSU100V39 SQ; +METF-440 PO; +METO25TA4 PO; +MULT-213 PO; +ONDA4TAB11 PO; +SENN8.6T19 PO; +UBID200C35 PO; +VITS42.53 TP; +ZINC220C6 PO; +ZINC57OI4 TP
[2024-05-15] MEDS ORDERED: ZOLPIDEM TARTRATE 5 MG TABLET PO PRN (22:30)
[2024-05-15] MEDS ORDERED: ACETAMINOPHEN 325 MG TABLET PO PRN (22:30)
[2024-05-15] MEDS: ENOXAPARIN SODIUM 40 MG/0.4 ML DISP.SYRIN SQ SCH (22:30)
[2024-05-15] MEDS ORDERED: MAGNESIUM HYDROXIDE 30 ML UDC PO PRN (22:30)
[2024-05-15] MEDS ORDERED: MAG HYDROX/AL HYDROX/SIMETH 30 ML UDC PO PRN (22:30)
[2024-05-15] MEDS ORDERED: ONDANSETRON HCL/PF 4 MG/2 ML VIAL IVP PRN (22:30)
[2024-05-16] VITALS (7 sets, daily range): BP systolic 138–160; BP diastolic 55–95; TEMP 98.1–98.4; O2SAT 94–99
[2024-05-16] MEDS ORDERED: HYDR-4076 PO (05:38)
[2024-05-16] MEDS ORDERED: OMEG-179 PO (05:38)
[2024-05-16] MEDS ORDERED: CHOL400T11 PO (05:38)
[2024-05-16] MEDS ORDERED: MEGE400O5 PO ×2 (05:38)
[2024-05-16] MEDS ORDERED: METF-440 PO (05:38)
[2024-05-16] MEDS ORDERED: METO2.5T2 PO (05:38)
[2024-05-16] MEDS ORDERED: CREA100P6 PO (05:38)
[2024-05-16] MEDS ORDERED: FISH12002 PO (05:38)
[2024-05-16] MEDS ORDERED: EMPA10TA PO (05:38)
[2024-05-16] MEDS ORDERED: METH5TAB6 PO (05:38)
[2024-05-16] MEDS ORDERED: SODI10PO PO (05:38)
[2024-05-16] MEDS ORDERED: UBID200C36 PO (05:38)
[2024-05-16] MEDS ORDERED: AMPI3VIA IVP (05:38)
[2024-05-16] MEDS ORDERED: hydrALAZINE HCL 25 MG TABLET PO PRN (06:00)
[2024-05-16] MEDS: PANTOPRAZOLE 40 MG TABLET.DR PO SCH (07:32)
[2024-05-16 07:47] LABS: BASOPHILS # (AUTO) 0.1 K/uL (0.0-0.2); EOSINOPHILS # (AUTO) 0.1 K/uL (0.0-0.7); EOSINOPHILS % (AUTO) 2.1 % (0.0-6.0); HEMATOCRIT 25 % (33-45); HEMOGLOBIN 8.1 g/dL (11.5-14.8); LYMPHOCYTES # (AUTO) 0.8 K/uL (0.8-4.8); LYMPHOCYTES % (AUTO) 13.4 % (20.0-44.0); MEAN CORPUSCULAR HEMOGLOBIN 28 PG (26.0-33.0); MEAN CORPUSCULAR HGB CONC 33 g/dl (31.0-36.0); MEAN CORPUSCULAR VOLUME 87 fL (82-100); MONOCYTES # (AUTO) 0.6 K/uL (0.1-1.30); MONOCYTES % (AUTO) 9.5 % (2.0-12.0); NEUTROPHILS # (AUTO) 4.5 K/uL (1.8-8.9); PLATELET COUNT (AUTO) 206 K/uL (150-450); RED BLOOD CELL COUNT(AUTO) 2.85 MIL/uL (4.0-5.2); RED CELL DISTRIBUTION WIDTH 17.5 % (11.5-15.0); WHITE BLOOD COUNT (AUTO) 6.1 K/uL (4.3-11.0)
[2024-05-16 08:58] LABS: CARBON DIOXIDE 25 mmol/L (21-32); CHLORIDE 104 mmol/L (98-107); CREATININE 0.8 mg/dL (0.6-1.3); GLUCOSE 91 mg/dL (74-106); POTASSIUM 5.3 mmol/L (3.5-5.1); SODIUM SERUM 140 mmol/L (136-145); UREA NITROGEN, BLOOD 45 mg/dL (7-18)
[2024-05-16] MEDS ORDERED: Medication Not On Formulary EA (Fish Oil/Borage/Flax/Om3,6,9#1 (Omega 3-6-9 1,200 mg Sof PO SCH (09:00)
[2024-05-16] MEDS ORDERED: UBIDECARENONE 200 MG PO SCH (09:00)
[2024-05-16 09:19] LABS: ALBUMIN 1.8 g/dL (3.4-5.0); ALKALINE PHOSPHATASE 140 U/L (46-116); ASPARTATE AMINOTRANSFERASE 35 U/L (15-37); BILIRUBIN,DIRECT 0.1 mg/dL (0.0-0.2); BILIRUBIN,TOTAL 0.3 mg/dL (0.2-1.0); PHOSPHORUS 4.3 mg/dL (2.5-4.9); TOTAL PROTEIN, SERUM 5.9 g/dL (6.4-8.2)
[2024-05-16] MEDS: ASPIRIN EC 81 MG TABLET.DR PO SCH (10:18)
[2024-05-16] MEDS: MEGESTROL ACETATE SUSP 400 MG/10 ML UDC PO SCH (10:18)
[2024-05-16] MEDS: FUROSEMIDE 20 MG TABLET PO SCH (10:18)
[2024-05-16] MEDS: METOPROLOL SUCCINATE 25 MG TAB.SR.24H PO SCH (10:19)
[2024-05-16] MEDS: CHOLECALCIFEROL (VITAMIN D 3) 400 UNIT TABLET PO SCH (10:19)
[2024-05-16] MEDS: METOLAZONE 2.5 MG TABLET PO SCH (10:20)
[2024-05-16] MEDS: EMPAGLIFLOZIN 10 MG TABLET PO SCH (10:22)
[2024-05-16] MEDS: METHIMAZOLE (5MG) 5 MG TABLET PO SCH (10:22)
[2024-05-16] MEDS: Z GUARD REMEDY 4 OZ OINT TP PRN (10:24)
[2024-05-16] MEDS ORDERED: ENOXAPARIN SODIUM 40 MG/0.4 ML DISP.SYRIN SQ SCH (11:00)
[2024-05-16] MEDS: METFORMIN 500 MG TABLET PO SCH (11:26)
[2024-05-16] MEDS: ENOXAPARIN SODIUM 40 MG/0.4 ML DISP.SYRIN SQ SCH (11:31)
[2024-05-16 11:59] LABS: NT-PRO BNP < 5 pg/mL (0-125)
[2024-05-16] MEDS: AMPICILLIN IJ SCH (12:04)
[2024-05-16] MEDS: NS 0.9% IJ SCH (12:04)
[2024-05-16] MEDS: SULBACTAM IJ SCH (12:04)
[2024-05-16] MEDS: hydrALAZINE HCL 25 MG TABLET PO SCH (12:07)
[2024-05-16 12:37] LABS: ALANINE AMINOTRANSFERASE 73 U/L (12-78)
[2024-05-16 14:52] LABS: CALCIUM, SERUM 9.8 mg/dL (8.5-10.1); CARBON DIOXIDE 33 mmol/L (21-32); CHLORIDE 102 mmol/L (98-107); CREATININE 0.9 mg/dL (0.6-1.3); GLUCOSE 131 mg/dL (74-106); POTASSIUM 5.2 mmol/L (3.5-5.1); SODIUM SERUM 141 mmol/L (136-145); UREA NITROGEN, BLOOD 47 mg/dL (7-18)
[2024-05-16] MEDS ORDERED: NS 0.9% IJ SCH (18:00)
[2024-05-16] MEDS ORDERED: SULBACTAM IJ SCH (18:00)
[2024-05-16] MEDS ORDERED: AMPICILLIN IJ SCH (18:00)
[2024-05-16] MEDS: CEFEPIME 1 GM in IV D5W 50 ML IV SCH (20:28)
[2024-05-17 04:00] VITALS: BP 158/66; TEMP 97.7; O2SAT 94
[2024-05-17 08:00] VITALS: BP 164/84; TEMP 98.1; O2SAT 94
[2024-05-17 08:03] LABS: CALCIUM, SERUM 10.6 mg/dL (8.5-10.1); CARBON DIOXIDE 30 mmol/L (21-32); CHLORIDE 102 mmol/L (98-107); GLUCOSE 121 mg/dL (74-106); POTASSIUM 5.1 mmol/L (3.5-5.1); SODIUM SERUM 139 mmol/L (136-145); UREA NITROGEN, BLOOD 52 mg/dL (7-18)
[2024-05-17 12:00] VITALS: BP 156/67
[2024-05-17] MEDS: ENSURE ENLIVE 237 ML LIQUID (VANILLA) PO SCH (17:09)
[2024-05-17 20:00] VITALS: BP 137/67; TEMP 97.7; O2SAT 97
[2024-05-18 04:00] VITALS: BP 131/54; TEMP 97.7; O2SAT 100
[2024-05-18 07:54] LABS: BASOPHILS % (AUTO) 0.2 % (0.0-2.0); EOSINOPHILS # (AUTO) 0.4 K/uL (0.0-0.7); HEMATOCRIT 31 % (33-45); HEMOGLOBIN 10.2 g/dL (11.5-14.8); LYMPHOCYTES # (AUTO) 0.6 K/uL (0.8-4.8); LYMPHOCYTES % (AUTO) 4.9 % (20.0-44.0); MEAN CORPUSCULAR HEMOGLOBIN 29 PG (26.0-33.0); MEAN CORPUSCULAR HGB CONC 33 g/dl (31.0-36.0); MEAN CORPUSCULAR VOLUME 88 fL (82-100); MONOCYTES # (AUTO) 0.4 K/uL (0.1-1.30); MONOCYTES % (AUTO) 3.9 % (2.0-12.0); NEUTROPHILS # (AUTO) 10.2 K/uL (1.8-8.9); PLATELET COUNT (AUTO) 240 K/uL (150-450); RED BLOOD CELL COUNT(AUTO) 3.55 MIL/uL (4.0-5.2); RED CELL DISTRIBUTION WIDTH 17.5 % (11.5-15.0); WHITE BLOOD COUNT (AUTO) 11.6 K/uL (4.3-11.0)
[2024-05-18 08:12] LABS: CALCIUM, SERUM 10.2 mg/dL (8.5-10.1); CARBON DIOXIDE 24 mmol/L (21-32); CHLORIDE 101 mmol/L (98-107); GLUCOSE 94 mg/dL (74-106); PHOSPHORUS 4.1 mg/dL (2.5-4.9); POTASSIUM 5.5 mmol/L (3.5-5.1); SODIUM SERUM 136 mmol/L (136-145); UREA NITROGEN, BLOOD 52 mg/dL (7-18)
[2024-05-18] MEDS: SODIUM POLYSTYRENE SULFONATE 15 G/60 ML BOTTLE PO ONE (10:47)
[2024-05-18] MEDS: FUROSEMIDE 20 MG TABLET PO SCH (10:48)
[2024-05-18 13:34] VITALS: BP 139/59
[2024-05-18 13:41] LABS: CALCIUM, SERUM 10.4 mg/dL (8.5-10.1); CARBON DIOXIDE 29 mmol/L (21-32); CHLORIDE 102 mmol/L (98-107); CREATININE 0.9 mg/dL (0.6-1.3); GLUCOSE 140 mg/dL (74-106); POTASSIUM 4.6 mmol/L (3.5-5.1); SODIUM SERUM 140 mmol/L (136-145); UREA NITROGEN, BLOOD 54 mg/dL (7-18)
[2024-05-18] MEDS ORDERED: FURO20TA4 PO (13:52)
== END 2024-05-18 17:59 | DRG 154 ==
LOC: TELE1 21:18 → MEDSG1 05-16 10:09
PROVIDERS: ADMIT Nurse Practitioner Family; ATTEND Student in an Organized Health Care Education/Training Program
DX: K11.3 Abscess of salivary gland (principal); E43 Unspecified severe protein-calorie malnutrition; G93.41 Metabolic encephalopathy; I50.33 Acute on chronic diastolic (congestive) heart failure; R64 Cachexia; Z68.1 Body mass index [BMI] 19.9 or less, adult; N17.9 Acute kidney failure, unspecified; I11.0 Hypertensive heart disease with heart failure; R62.7 Adult failure to thrive; D63.8 Anemia in other chronic diseases classified elsewhere; E03.9 Hypothyroidism, unspecified; E11.9 Type 2 diabetes mellitus without complications; E83.52 Hypercalcemia; E87.5 Hyperkalemia; Z87.01 Personal history of pneumonia (recurrent); M81.0 Age-related osteoporosis without current pathological fracture; E87.6 Hypokalemia; F03.90 Unspecified dementia, unspecified severity, without behavioral disturbance, psychotic disturbance, mood disturbance, and anxiety; E05.20 Thyrotoxicosis with toxic multinodular goiter without thyrotoxic crisis or storm; Z88.2 Allergy status to sulfonamides; Z87.440 Personal history of urinary (tract) infections; M62.50 Muscle wasting and atrophy, not elsewhere classified, unspecified site; Z79.84 Long term (current) use of oral hypoglycemic drugs
CPT/HCPCS: 36415; 71045-TC; 80048-TC; 80076-TC; 82962-TC; 83735-TC; 83880; 84100-TC; 84443-TC; 84484-TC; 85025-TC; 87081-TC; 92526; 92611-TC; A4223; G0378; J0295; J0692; J1650; J7030; J7050; J7060

== ENCOUNTER 2024-06-14 09:51 | Inpatient (IN) | payer MEDICARE, BC ==
[~2024-06-14] VITALS: Ht 162.6 cm; Wt 51.7 kg
[2024-06-14] VITALS (12 sets, daily range): BP systolic 113–142; BP diastolic 64–83; TEMP 97.1; O2SAT 90–99
[~2024-06-14 09:51] MED LIST changes: -ACET325T53 PO; -AMLO-213 PO; -AMOX1TAB15 PO; -ASCO-352 PO; -CALC3.7S NS; +CHOL400T11 PO; -CLON0.1T PO; +CREA100P6 PO; +EMPA10TA PO; -ENOX30DI5 SQ; -FERR325T23 PO; +FISH12002 PO; -GUAI600T31 PO; +HYDR-4076 PO; -INSU100V39 SQ; +MEGE400O5 PO; +METH5TAB6 PO; +METO2.5T2 PO; -ONDA4TAB11 PO; -SENN8.6T19 PO; +SODI10PO PO; -UBID200C35 PO; +UBID200C36 PO; -VITS42.53 TP; -ZINC220C6 PO; -ZINC57OI4 TP
[2024-06-14] MEDS: CEFEPIME 1 GM in IV D5W 50 ML IV ONE (10:15)
[2024-06-14 10:33] LABS: BASOPHILS # (AUTO) 0.1 K/uL (0.0-0.2); BASOPHILS % (AUTO) 0.2 % (0.0-2.0); HEMATOCRIT 39 % (33-45); HEMOGLOBIN 12.6 g/dL (11.5-14.8); LYMPHOCYTES # (AUTO) 1.9 K/uL (0.8-4.8); LYMPHOCYTES % (AUTO) 5.1 % (20.0-44.0); MEAN CORPUSCULAR HEMOGLOBIN 28 PG (26.0-33.0); MEAN CORPUSCULAR HGB CONC 32 g/dl (31.0-36.0); MEAN CORPUSCULAR VOLUME 88 fL (82-100); MONOCYTES # (AUTO) 1.7 K/uL (0.1-1.30); MONOCYTES % (AUTO) 4.6 % (2.0-12.0); NEUTROPHILS # (AUTO) 32.6 K/uL (1.8-8.9); NEUTROPHILS % (AUTO) 90.1 % (43.0-81.0); PLATELET COUNT (AUTO) 508 K/uL (150-450); RED BLOOD CELL COUNT(AUTO) 4.42 MIL/uL (4.0-5.2); RED CELL DISTRIBUTION WIDTH 15.8 % (11.5-15.0)
[2024-06-14 10:36] LABS: WHITE BLOOD COUNT (AUTO) 36.2 K/uL (4.3-11.0)
[2024-06-14 10:43] LABS: APPEARANCE,URINE SLIGHTLY CLOUDY (CLEAR); BILIRUBIN,URINE NEGATIVE (NEGATIVE); BLOOD, URINE TRACE-INTA Ery/uL (NEGATIVE); COLOR,URINE YELLOW (YELLOW); KETONES,URINE NEGATIVE (NEGATIVE); LEUKOCYTE ESTERASE ,URINE 1+ (NEGATIVE); NITRITE, URINE POSITIVE (NEGATIVE); PROTEIN,URINE 1+ mg/dl (NEGATIVE); UGLUCOSE 1+ mg/dL (NEGATIVE); UROBILINOGEN,URINE 0.2 EU/dL (0.2)
[2024-06-14 10:52] LABS: INR 1.03 (0.91-1.10); PARTIAL THROMBOPLASTIN TIME 22.1 SEC (24.3-34.3); PROTHROMBIN TIME 10.9 SECS (9.2-11.1)
[2024-06-14] MEDS ORDERED: CREA100P6 PO (10:55)
[2024-06-14] MEDS ORDERED: MAGN400O6 PO (10:55)
[2024-06-14] MEDS ORDERED: DEXT15DR23 EACHEYE (10:55)
[2024-06-14] MEDS ORDERED: PETR113O TP (10:55)
[2024-06-14] MEDS ORDERED: CHOL200026 PO (10:55)
[2024-06-14] MEDS ORDERED: FURO-144 PO (10:55)
[2024-06-14] MEDS ORDERED: ACET-868 PO ×2 (10:55→10:56)
[2024-06-14] MEDS ORDERED: ASCO-352 PO (10:56)
[2024-06-14] MEDS ORDERED: ZINC220C6 PO (10:56)
[2024-06-14] MEDS ORDERED: MODAFINIL PO (10:56)
[2024-06-14] MEDS ORDERED: ZINC57OI4 TP (10:56)
[2024-06-14 10:57] LABS: ADD URINE CULTURE YES; BACTERIA,URINE Many /HPF (None Seen); WBC,URINE 21-50 /HPF (0-3)
[2024-06-14] MEDS: VANCOMYCIN 1 GM in IV D5W 250 ML IV ONE (10:58)
[2024-06-14 11:01] LABS: RBC,URINE 0-2 /HPF (0-2); SQUAMOUS EPITHELIAL CELL,UR None Seen /HPF (None Seen)
[2024-06-14 11:02] LABS: TRIPLE PHOSPHATE CRYSTAL,UR Rare /HPF (None Seen)
[2024-06-14 11:06] LABS: LACTIC ACID 2.2 mmol/L (0.4-2.0)
[2024-06-14 11:11] LABS: ALANINE AMINOTRANSFERASE 47 U/L (12-78); ALBUMIN 2.4 g/dL (3.4-5.0); ALKALINE PHOSPHATASE 190 U/L (46-116); ASPARTATE AMINOTRANSFERASE 22 U/L (15-37); BILIRUBIN,DIRECT 0.2 mg/dL (0.0-0.2); BILIRUBIN,TOTAL 0.6 mg/dL (0.2-1.0); CALCIUM, SERUM 12.9 mg/dL (8.5-10.1); CARBON DIOXIDE 34 mmol/L (21-32); CHLORIDE 99 mmol/L (98-107); CREATININE 1.1 mg/dL (0.6-1.3); GLUCOSE 324 mg/dL (74-106); NT-PRO BNP 2149 pg/mL (0-125); SODIUM SERUM 143 mmol/L (136-145); TOTAL PROTEIN, SERUM 8.8 g/dL (6.4-8.2)
[2024-06-14 11:15] LABS: UREA NITROGEN, BLOOD 111 mg/dL (7-18)
[2024-06-14] MEDS: IV NS 0.9% 1,000 ML BAG IV ONE (11:15)
[2024-06-14 12:16] LABS: BASOPHILS % (MANUAL) 0 % (0.0-2.0); EOSINOPHILS % (MANUAL) 0 % (0-4); LYMPHOCYTES % (MANUAL) 5 % (16-48); MONOCYTES % (MANUAL) 2 % (0-11.0); NEUTROPHILS % (MANUAL) 93 (42-76); PLATELET ESTIMATE ADEQUATE; STOMATOCYTES 1+
[2024-06-14 17:19] LABS: ABG BASE EXCESS 7.6 mmol/L (-2.0-3.0); ABG OXYGEN SATURATION 94.5 % (94.0-98.0); ABG PCO2 49.1 mmHg (32.0-45.0); ABG PH 7.445 (7.350-7.450); ABG PO2 75.1 mmHg (83.0-108.0); ABG TOTAL HEMOGLOBIN 13.2 G/dL (12.0-16.0); COHb 0.3 % (0.5-1.5); MetHb 0.5 % (0.0-1.5); O2Hb 93.7 % (94.0-97.0); SITE, ABG Right Radial; VENT MODE, BG 4LPM NASAL CANNULA
[2024-06-14] MEDS ORDERED: ACETAMINOPHEN 325 MG TABLET PO PRN (18:00)
[2024-06-14] MEDS ORDERED: Z GUARD REMEDY 4 OZ OINT TP PRN (18:00)
[2024-06-14] MEDS ORDERED: ONDANSETRON HCL/PF 4 MG/2 ML VIAL IVP PRN (18:00)
[2024-06-14] MEDS: IV 1/2NS 1000 ML 1,000 ML IV PRN (20:46)
[2024-06-14] MEDS: ENOXAPARIN SODIUM 30 MG/0.3 ML DISP.SYRIN SQ SCH (21:21)
[2024-06-15] VITALS (51 sets, daily range): BP systolic 60–142; BP diastolic 36–89; TEMP 97.1–98; O2SAT 91–100
[2024-06-15 04:06] LABS: BASOPHILS % (AUTO) 0.2 % (0.0-2.0); HEMATOCRIT 33 % (33-45); HEMOGLOBIN 10.4 g/dL (11.5-14.8); LYMPHOCYTES # (AUTO) 0.9 K/uL (0.8-4.8); LYMPHOCYTES % (AUTO) 3.2 % (20.0-44.0); MEAN CORPUSCULAR HEMOGLOBIN 28 PG (26.0-33.0); MEAN CORPUSCULAR HGB CONC 32 g/dl (31.0-36.0); MEAN CORPUSCULAR VOLUME 89 fL (82-100); MONOCYTES # (AUTO) 1.1 K/uL (0.1-1.30); MONOCYTES % (AUTO) 3.9 % (2.0-12.0); NEUTROPHILS # (AUTO) 25.8 K/uL (1.8-8.9); NEUTROPHILS % (AUTO) 92.7 % (43.0-81.0); PLATELET COUNT (AUTO) 320 K/uL (150-450); RED BLOOD CELL COUNT(AUTO) 3.67 MIL/uL (4.0-5.2); RED CELL DISTRIBUTION WIDTH 15.4 % (11.5-15.0); WHITE BLOOD COUNT (AUTO) 27.8 K/uL (4.3-11.0)
[2024-06-15 04:27] LABS: CALCIUM, SERUM 10.7 mg/dL (8.5-10.1); CARBON DIOXIDE 35 mmol/L (21-32); CHLORIDE 104 mmol/L (98-107); CREATININE 0.9 mg/dL (0.6-1.3); GLUCOSE 242 mg/dL (74-106); PHOSPHORUS 3.4 mg/dL (2.5-4.9); SODIUM SERUM 144 mmol/L (136-145)
[2024-06-15 04:38] LABS: CHOLESTEROL 155 mg/dL (<200); HDL CHOLESTEROL 16 mg/dL (40-60); LDL 99 mg/dL (0-99); TRIGLYCERIDES 174 mg/dL (30-150)
[2024-06-15 04:44] LABS: POTASSIUM 2.7 mmol/L (3.5-5.1); UREA NITROGEN, BLOOD 102 mg/dL (7-18)
[2024-06-15 05:55] LABS: ANISOCYTOSIS 1+; BAND % (MANUAL) 1 % (0.0-5.0); BASOPHILS % (MANUAL) 0 % (0.0-2.0); EOSINOPHILS % (MANUAL) 0 % (0-4); LYMPHOCYTES % (MANUAL) 5 % (16-48); MONOCYTES % (MANUAL) 3 % (0-11.0); NEUTROPHILS % (MANUAL) 91 (42-76); PLATELET ESTIMATE ADEQUATE; STOMATOCYTES RARE
[2024-06-15] MEDS: POTASSIUM CL. PREMIX PERIPHER. 50 ML IV SCH ×2 (08:07→09:58)
[2024-06-15] MEDS: METOPROLOL SUCCINATE 25 MG TAB.SR.24H PO SCH (08:07)
[2024-06-15] MEDS: PANTOPRAZOLE 40 MG TABLET.DR PO SCH (08:07)
[2024-06-15] MEDS: ASPIRIN EC 81 MG TABLET.DR PO SCH (08:07)
[2024-06-15] MEDS: EMPAGLIFLOZIN 10 MG TABLET PO SCH (08:30)
[2024-06-15] MEDS: CEFEPIME 1 GM in IV D5W 50 ML IV SCH (09:00)
[2024-06-15] MEDS: THERAHONEY GEL 1.5 OZ TUBE TP SCH (13:08)
[2024-06-15] MEDS: GLUCERNA SHAKE 237 ML CAN PO SCH (13:09)
[2024-06-15] MEDS: PROSOURCE / PROSTAT (PYXIS) 30 ML UDC PO SCH (13:10)
[2024-06-15] MEDS: VANCOMYCIN 750 MG in IV D5W 250 ML IV SCH (14:32)
[2024-06-15] MEDS: PROPOFOL 100 ML IV PRN (20:43)
[2024-06-15 20:54] LABS: BASOPHILS % (AUTO) 0.2 % (0.0-2.0); EOSINOPHILS # (AUTO) 0.1 K/uL (0.0-0.7); EOSINOPHILS % (AUTO) 0.2 % (0.0-6.0); HEMATOCRIT 37 % (33-45); LYMPHOCYTES # (AUTO) 1.4 K/uL (0.8-4.8); LYMPHOCYTES % (AUTO) 5.1 % (20.0-44.0); MEAN CORPUSCULAR HEMOGLOBIN 28 PG (26.0-33.0); MEAN CORPUSCULAR HGB CONC 30 g/dl (31.0-36.0); MEAN CORPUSCULAR VOLUME 94 fL (82-100); MONOCYTES % (AUTO) 3.5 % (2.0-12.0); NEUTROPHILS # (AUTO) 25.6 K/uL (1.8-8.9); PLATELET COUNT (AUTO) 292 K/uL (150-450); RED BLOOD CELL COUNT(AUTO) 3.92 MIL/uL (4.0-5.2); RED CELL DISTRIBUTION WIDTH 17.1 % (11.5-15.0); WHITE BLOOD COUNT (AUTO) 28.1 K/uL (4.3-11.0)
[2024-06-15] MEDS: PHENYLEPHRINE 50 MG in IV NS 0.9% 245 ML IV PRN (21:05)
[2024-06-15 21:08] LABS: CALCIUM, SERUM 11.2 mg/dL (8.5-10.1); CARBON DIOXIDE 25 mmol/L (21-32); CHLORIDE 100 mmol/L (98-107); GLUCOSE 328 mg/dL (74-106); POTASSIUM 4.6 mmol/L (3.5-5.1); SODIUM SERUM 133 mmol/L (136-145)
[2024-06-15 21:13] LABS: ALANINE AMINOTRANSFERASE 32 U/L (12-78); ALBUMIN 1.6 g/dL (3.4-5.0); ALKALINE PHOSPHATASE 145 U/L (46-116); ASPARTATE AMINOTRANSFERASE 30 U/L (15-37); BILIRUBIN,TOTAL 0.4 mg/dL (0.2-1.0); TOTAL PROTEIN, SERUM 6.8 g/dL (6.4-8.2)
[2024-06-15 21:15] LABS: UREA NITROGEN, BLOOD 94 mg/dL (7-18)
[2024-06-15 22:20] LABS: LYMPHOCYTES % (MANUAL) 5 % (16-48); MONOCYTES % (MANUAL) 4 % (0-11.0); NEUTROPHILS % (MANUAL) 91 (42-76); PLATELET ESTIMATE ADEQUATE
[2024-06-15 22:23] LABS: ANISOCYTOSIS 1+; TARGET CELLS 1+
[2024-06-15] MEDS ORDERED: VANCOMYCIN 1 GM in IV D5W 250ml IV SCH (23:00)
[2024-06-16] VITALS (93 sets, daily range): BP systolic 90–179; BP diastolic 50–166; TEMP 97.5–99.1; O2SAT 87–100
[2024-06-16 04:07] LABS: BASOPHILS % (AUTO) 0.1 % (0.0-2.0); HEMATOCRIT 33 % (33-45); HEMOGLOBIN 10.2 g/dL (11.5-14.8); LYMPHOCYTES # (AUTO) 1.2 K/uL (0.8-4.8); LYMPHOCYTES % (AUTO) 3.5 % (20.0-44.0); MEAN CORPUSCULAR HEMOGLOBIN 29 PG (26.0-33.0); MEAN CORPUSCULAR HGB CONC 31 g/dl (31.0-36.0); MEAN CORPUSCULAR VOLUME 92 fL (82-100); MONOCYTES # (AUTO) 1.3 K/uL (0.1-1.30); MONOCYTES % (AUTO) 3.9 % (2.0-12.0); NEUTROPHILS % (AUTO) 92.5 % (43.0-81.0); PLATELET COUNT (AUTO) 398 K/uL (150-450); RED BLOOD CELL COUNT(AUTO) 3.55 MIL/uL (4.0-5.2); RED CELL DISTRIBUTION WIDTH 16.3 % (11.5-15.0)
[2024-06-16 04:20] LABS: WHITE BLOOD COUNT (AUTO) 33.6 K/uL (4.3-11.0)
[2024-06-16 04:36] LABS: ANISOCYTOSIS 1+; BAND % (MANUAL) 3 % (0.0-5.0); BASOPHILS % (MANUAL) 0 % (0.0-2.0); EOSINOPHILS % (MANUAL) 0 % (0-4); LYMPHOCYTES % (MANUAL) 5 % (16-48); MONOCYTES % (MANUAL) 3 % (0-11.0); NEUTROPHILS % (MANUAL) 89 (42-76); OVALOCYTES FEW; PLATELET ESTIMATE ADEQUATE
[2024-06-16 04:47] LABS: ALANINE AMINOTRANSFERASE 30 U/L (12-78); ALBUMIN 1.6 g/dL (3.4-5.0); ALKALINE PHOSPHATASE 138 U/L (46-116); ASPARTATE AMINOTRANSFERASE 29 U/L (15-37); BILIRUBIN,TOTAL 0.6 mg/dL (0.2-1.0); CALCIUM, SERUM 10.6 mg/dL (8.5-10.1); CARBON DIOXIDE 27 mmol/L (21-32); CHLORIDE 100 mmol/L (98-107); GLUCOSE 241 mg/dL (74-106); MAGNESIUM 1.9 mg/dL (1.8-2.4); PHOSPHORUS 2.6 mg/dL (2.5-4.9); POTASSIUM 3.7 mmol/L (3.5-5.1); SODIUM SERUM 134 mmol/L (136-145); TOTAL PROTEIN, SERUM 6.3 g/dL (6.4-8.2)
[2024-06-16 04:51] LABS: UREA NITROGEN, BLOOD 97 mg/dL (7-18)
[2024-06-16] MEDS ORDERED: PHARMACY TO CHANGE PO MEDS TO GT/NG XX PRN (08:00)
[2024-06-16] MEDS: PROSOURCE / PROSTAT (PYXIS) 30 ML UDC GT SCH (09:00)
[2024-06-16] MEDS: EMPAGLIFLOZIN 10 MG TABLET GT SCH (09:00)
[2024-06-16] MEDS: ASPIRIN 81 MG TAB.CHEW GT SCH (09:37)
[2024-06-16] MEDS: METHIMAZOLE (5MG) 5 MG TABLET PO SCH (09:38)
[2024-06-16] MEDS: PANTOPRAZOLE 40 MG/PACK PACK GT SCH (09:38)
[2024-06-16] MEDS: CEFEPIME 1 GM in IV D5W 50 ML IV SCH (10:58)
[2024-06-16 17:29] LABS: CREATINE KINASE, TOTAL 40 U/L (26-192)
[2024-06-16] MEDS: MUPIROCIN OINT 2% 22 GM TUBE NS SCH (21:02)
[2024-06-16] MEDS: MEROPENEM 500 MG in IV NS 0.9% 50 ML IV SCH (22:28)
[2024-06-16] MEDS: MEROPENEM 500MG/NS 50 ML PB IV ONE (22:33)
[2024-06-17] VITALS (87 sets, daily range): BP systolic 86–128; BP diastolic 46–100; TEMP 96.8–98.8; O2SAT 98–100
[2024-06-17] MEDS: VANCOMYCIN 750 MG in IV D5W 250 ML IV SCH (00:29)
[2024-06-17] MEDS: MEROPENEM 500MG/NS 50 ML PB IV ONE (04:14)
[2024-06-17 05:02] LABS: BASOPHILS % (AUTO) 0.2 % (0.0-2.0); EOSINOPHILS # (AUTO) 0.1 K/uL (0.0-0.7); EOSINOPHILS % (AUTO) 0.4 % (0.0-6.0); HEMATOCRIT 29 % (33-45); HEMOGLOBIN 9.4 g/dL (11.5-14.8); LYMPHOCYTES # (AUTO) 0.9 K/uL (0.8-4.8); LYMPHOCYTES % (AUTO) 4.6 % (20.0-44.0); MEAN CORPUSCULAR HEMOGLOBIN 28 PG (26.0-33.0); MEAN CORPUSCULAR HGB CONC 33 g/dl (31.0-36.0); MEAN CORPUSCULAR VOLUME 87 fL (82-100); MONOCYTES # (AUTO) 0.9 K/uL (0.1-1.30); MONOCYTES % (AUTO) 4.3 % (2.0-12.0); NEUTROPHILS # (AUTO) 18.6 K/uL (1.8-8.9); NEUTROPHILS % (AUTO) 90.5 % (43.0-81.0); PLATELET COUNT (AUTO) 245 K/uL (150-450); RED BLOOD CELL COUNT(AUTO) 3.32 MIL/uL (4.0-5.2); RED CELL DISTRIBUTION WIDTH 15.6 % (11.5-15.0); WHITE BLOOD COUNT (AUTO) 20.5 K/uL (4.3-11.0)
[2024-06-17 05:29] LABS: CALCIUM, SERUM 10.3 mg/dL (8.5-10.1); CARBON DIOXIDE 29 mmol/L (21-32); CHLORIDE 98 mmol/L (98-107); CREATININE 0.8 mg/dL (0.6-1.3); GLUCOSE 148 mg/dL (74-106); MAGNESIUM 1.5 mg/dL (1.8-2.4); PHOSPHORUS 2.5 mg/dL (2.5-4.9); SODIUM SERUM 134 mmol/L (136-145); UREA NITROGEN, BLOOD 63 mg/dL (7-18)
[2024-06-17] MEDS: POTASSIUM CL. PREMIX PERIPHER. 50 ML IV SCH ×2 (06:17→09:06)
[2024-06-17] MEDS: POTASSIUM CHLORIDE 20 MEQ POWDER PACKET GT ONE (06:17)
[2024-06-17 08:08] LABS: PTH, INTACT 30 pg/mL (15-65)
[2024-06-17 08:12] LABS: POTASSIUM 2.2 mmol/L (3.5-5.1)
[2024-06-17] MEDS ORDERED: POTASSIUM CL. PREMIX PERIPHER. 50 ML IV SCH (08:30)
[2024-06-17] MEDS: IV NS 0.9% 1,000 ML IV PRN (09:04)
[2024-06-17] MEDS: Magnesium 1GM/D5W 100ML PREMIX 100 ML IV SCH (09:06)
[2024-06-17 10:13] LABS: *SPE A/G RATIO 0.4 (0.7-1.7); *SPE ALBUMIN 1.7 g/dL (2.9-4.4); *SPE ALPHA-1-GLOBULIN 0.4 g/dL (0.0-0.4); *SPE BETA GLOBULIN 1.1 g/dL (0.7-1.3); *SPE GLOBULIN, TOTAL 3.8 g/dL (2.2-3.9); *SPE M-SPIKE Not Observed g/dL (Not Observed); *SPE PROTEIN TOTAL 5.5 g/dL (6.0-8.5); *SPEGAMMA GLOBULIN 1.3 g/dL (0.4-1.8)
[2024-06-17] MEDS ORDERED: CEFEPIME 2 GM in IV D5W 100 ML IV SCH (11:00)
[2024-06-17] MEDS ORDERED: MEROPENEM 500 MG in IV NS 0.9% 50 ML IV SCH (13:00)
[2024-06-17 13:16] LABS: ABG BASE EXCESS 1.6 mmol/L (-2.0-3.0); ABG OXYGEN SATURATION 98.2 % (94.0-98.0); ABG PCO2 30.9 mmHg (32.0-45.0); ABG PH 7.511 (7.350-7.450); ABG PO2 109.9 mmHg (83.0-108.0); ABG TOTAL HEMOGLOBIN 10.8 G/dL (12.0-16.0); AaDO2 139.8 mmHg; COHb 0.1 % (0.5-1.5); MetHb 0.1 % (0.0-1.5); PEEP,BG 5 cm H2O; SITE, ABG Right Radial; VT, ABG 375 mL
[2024-06-17] MEDS: MEROPENEM 1 G in IV NS 0.9% 100 ML IV SCH (15:11)
[2024-06-17 15:26] LABS: MAGNESIUM 2.3 mg/dL (1.8-2.4); POTASSIUM 4.1 mmol/L (3.5-5.1)
[2024-06-18] VITALS (65 sets, daily range): BP systolic 101–158; BP diastolic 47–121; TEMP 97.7–98.8; O2SAT 83–100
[2024-06-18 04:49] LABS: BASOPHILS # (AUTO) 0.1 K/uL (0.0-0.2); BASOPHILS % (AUTO) 0.4 % (0.0-2.0); EOSINOPHILS # (AUTO) 0.1 K/uL (0.0-0.7); EOSINOPHILS % (AUTO) 0.6 % (0.0-6.0); HEMATOCRIT 28 % (33-45); HEMOGLOBIN 9.3 g/dL (11.5-14.8); LYMPHOCYTES # (AUTO) 0.9 K/uL (0.8-4.8); LYMPHOCYTES % (AUTO) 4.5 % (20.0-44.0); MEAN CORPUSCULAR HEMOGLOBIN 29 PG (26.0-33.0); MEAN CORPUSCULAR HGB CONC 33 g/dl (31.0-36.0); MEAN CORPUSCULAR VOLUME 88 fL (82-100); MONOCYTES # (AUTO) 0.8 K/uL (0.1-1.30); MONOCYTES % (AUTO) 4.1 % (2.0-12.0); NEUTROPHILS # (AUTO) 17.8 K/uL (1.8-8.9); NEUTROPHILS % (AUTO) 90.4 % (43.0-81.0); PLATELET COUNT (AUTO) 275 K/uL (150-450); RED CELL DISTRIBUTION WIDTH 15.8 % (11.5-15.0); WHITE BLOOD COUNT (AUTO) 19.7 K/uL (4.3-11.0)
[2024-06-18 05:02] LABS: CALCIUM, SERUM 10.3 mg/dL (8.5-10.1); CARBON DIOXIDE 24 mmol/L (21-32); CHLORIDE 103 mmol/L (98-107); CREATININE 0.7 mg/dL (0.6-1.3); GLUCOSE 87 mg/dL (74-106); MAGNESIUM 2.3 mg/dL (1.8-2.4); PHOSPHORUS 2.4 mg/dL (2.5-4.9); POTASSIUM 3.9 mmol/L (3.5-5.1); SODIUM SERUM 134 mmol/L (136-145); UREA NITROGEN, BLOOD 45 mg/dL (7-18)
[2024-06-18] MEDS ORDERED: DC PROPOFOL WHEN EXTUBATED XX PRN ×2 (08:00→11:00)
[2024-06-18] MEDS: ALBUTEROL HALF STRENGTH 1.25 MG/3 ML VIAL.NEB NEB SCH (12:46)
[2024-06-18] MEDS: IPRATROPIUM NEB FS 0.5 MG/2.5 ML AMPUL.NEB NEB SCH (12:46)
[2024-06-18] MEDS: NEUTRA PHOS 1 POWD.PACKET GT ONE (16:11)
[2024-06-18] MEDS: PROPOFOL 100 ML IV PRN (18:26)
[2024-06-18] MEDS ORDERED: Sodium Phosphate 30 MMOL in IV NS 0.9% 250 ML IV SCH (19:00)
[2024-06-18] MEDS: SODIUM PHOSPHATE IV ONE (19:01)
[2024-06-18] MEDS: NS 0.9% IV ONE (19:01)
[2024-06-18 19:52] LABS: ABG OXYGEN SATURATION 96.8 % (94.0-98.0); ABG PCO2 29.2 mmHg (32.0-45.0); ABG PH 7.419 (7.350-7.450); ABG PO2 86.9 mmHg (83.0-108.0); ABG TOTAL HEMOGLOBIN 11.2 G/dL (12.0-16.0); AaDO2 596.9 mmHg; MetHb 0.2 % (0.0-1.5); O2Hb 96.6 % (94.0-97.0); PEEP,BG 0 cm H2O; SITE, ABG Right Radial; VENT MODE, BG AC 18 450 100% +0; VT, ABG 450 mL
[2024-06-18] MEDS: AMIODARONE 150 MG in IV D5W 100 ML IV ONE (20:50)
[2024-06-18] MEDS: AMIODARONE 450 MG in IV D5W 241 ML IV PRN ×2 (21:16)
[2024-06-18] MEDS: AMIODARONE 150 MG/3 ML VIAL IV ONE (21:33)
[2024-06-19] VITALS (95 sets, daily range): BP systolic 91–169; BP diastolic 44–85; TEMP 98.1–98.5; O2SAT 88–100
[2024-06-19] MEDS: AMIODARONE 150 MG/3 ML VIAL IV ONE (04:11)
[2024-06-19 04:13] LABS: BASOPHILS # (AUTO) 0.1 K/uL (0.0-0.2); BASOPHILS % (AUTO) 0.2 % (0.0-2.0); EOSINOPHILS # (AUTO) 0.1 K/uL (0.0-0.7); EOSINOPHILS % (AUTO) 0.4 % (0.0-6.0); HEMATOCRIT 28 % (33-45); LYMPHOCYTES # (AUTO) 0.8 K/uL (0.8-4.8); LYMPHOCYTES % (AUTO) 3.8 % (20.0-44.0); MEAN CORPUSCULAR HEMOGLOBIN 29 PG (26.0-33.0); MEAN CORPUSCULAR HGB CONC 33 g/dl (31.0-36.0); MEAN CORPUSCULAR VOLUME 88 fL (82-100); MONOCYTES % (AUTO) 4.6 % (2.0-12.0); NEUTROPHILS # (AUTO) 19.3 K/uL (1.8-8.9); PLATELET COUNT (AUTO) 277 K/uL (150-450); RED BLOOD CELL COUNT(AUTO) 3.16 MIL/uL (4.0-5.2); RED CELL DISTRIBUTION WIDTH 15.8 % (11.5-15.0); WHITE BLOOD COUNT (AUTO) 21.3 K/uL (4.3-11.0)
[2024-06-19 04:45] LABS: CALCIUM, SERUM 9.7 mg/dL (8.5-10.1); CARBON DIOXIDE 21 mmol/L (21-32); CHLORIDE 107 mmol/L (98-107); CREATININE 0.6 mg/dL (0.6-1.3); GLUCOSE 110 mg/dL (74-106); PHOSPHORUS 3.6 mg/dL (2.5-4.9); SODIUM SERUM 138 mmol/L (136-145); UREA NITROGEN, BLOOD 39 mg/dL (7-18)
[2024-06-19] MEDS: POTASSIUM CL. PREMIX PERIPHER. 50 ML IV SCH (07:44)
[2024-06-19] MEDS ORDERED: ETOMIDATE 2 MG/ML VIAL IV ONE (07:59)
[2024-06-19] MEDS ORDERED: POTASSIUM CL. PREMIX PERIPHER. 50 ML IV SCH (09:00)
[2024-06-19] MEDS ORDERED: ACETAMINOPHEN 650 MG/20.3 ML UDC GT PRN (09:30)
[2024-06-19] MEDS: ACETYLCYSTEINE 10% SOLN 400 MG/4 ML VIAL NEB SCH (11:59)
[2024-06-19] MEDS: JEVITY 1.2 CAL 1,000 ML BOTTLE GT PRN (13:00)
[2024-06-20] VITALS (97 sets, daily range): BP systolic 79–163; BP diastolic 37–98; TEMP 97.6–98.7; O2SAT 93–100
[2024-06-20 04:19] LABS: BASOPHILS % (AUTO) 0.2 % (0.0-2.0); EOSINOPHILS # (AUTO) 0.2 K/uL (0.0-0.7); EOSINOPHILS % (AUTO) 1.2 % (0.0-6.0); HEMATOCRIT 25 % (33-45); LYMPHOCYTES # (AUTO) 0.9 K/uL (0.8-4.8); LYMPHOCYTES % (AUTO) 6.7 % (20.0-44.0); MEAN CORPUSCULAR HEMOGLOBIN 28 PG (26.0-33.0); MEAN CORPUSCULAR HGB CONC 32 g/dl (31.0-36.0); MEAN CORPUSCULAR VOLUME 88 fL (82-100); MONOCYTES # (AUTO) 0.8 K/uL (0.1-1.30); MONOCYTES % (AUTO) 6.1 % (2.0-12.0); NEUTROPHILS # (AUTO) 11.3 K/uL (1.8-8.9); NEUTROPHILS % (AUTO) 85.8 % (43.0-81.0); PLATELET COUNT (AUTO) 238 K/uL (150-450); RED BLOOD CELL COUNT(AUTO) 2.81 MIL/uL (4.0-5.2); RED CELL DISTRIBUTION WIDTH 15.8 % (11.5-15.0); WHITE BLOOD COUNT (AUTO) 13.2 K/uL (4.3-11.0)
[2024-06-20 04:36] LABS: CALCIUM, SERUM 9.4 mg/dL (8.5-10.1); CARBON DIOXIDE 24 mmol/L (21-32); CHLORIDE 107 mmol/L (98-107); CREATININE 0.6 mg/dL (0.6-1.3); GLUCOSE 109 mg/dL (74-106); MAGNESIUM 1.6 mg/dL (1.8-2.4); PHOSPHORUS 2.5 mg/dL (2.5-4.9); POTASSIUM 3.2 mmol/L (3.5-5.1); SODIUM SERUM 138 mmol/L (136-145); UREA NITROGEN, BLOOD 29 mg/dL (7-18)
[2024-06-20 06:42] LABS: ABG BASE EXCESS -4.4 mmol/L (-2.0-3.0); ABG OXYGEN SATURATION 97.1 % (94.0-98.0); ABG PCO2 25.3 mmHg (32.0-45.0); ABG PH 7.473 (7.350-7.450); ABG PO2 93.7 mmHg (83.0-108.0); AaDO2 234.3 mmHg; COHb 0.3 % (0.5-1.5); O2Hb 96.8 % (94.0-97.0); SITE, ABG Right Radial
[2024-06-20 07:49] LABS: ABG BASE EXCESS -3.3 mmol/L (-2.0-3.0); ABG OXYGEN SATURATION 97.9 % (94.0-98.0); ABG PCO2 22.4 mmHg (32.0-45.0); ABG PH 7.532 (7.350-7.450); ABG PO2 103.6 mmHg (83.0-108.0); ABG TOTAL HEMOGLOBIN 8.9 G/dL (12.0-16.0); AaDO2 155.8 mmHg; COHb 0.3 % (0.5-1.5); MetHb 0.2 % (0.0-1.5); O2Hb 97.4 % (94.0-97.0); SITE, ABG Right Radial
[2024-06-20] MEDS: METHIMAZOLE (5MG) 5 MG TABLET GT SCH (08:19)
[2024-06-20] MEDS: METOPROLOL SUCCINATE 25 MG TAB.SR.24H GT SCH (08:21)
[2024-06-20] MEDS: POTASSIUM CL. PREMIX PERIPHER. 50 ML IV SCH (09:50)
[2024-06-20] MEDS: Magnesium 1GM/D5W 100ML PREMIX 100 ML IV SCH (10:00)
[2024-06-21] VITALS (84 sets, daily range): BP systolic 78–136; BP diastolic 44–87; TEMP 97.6–97.9; O2SAT 94–100
[2024-06-21] MEDS: VANCOMYCIN 500 MG in IV D5W 100ml IV SCH (01:00)
[2024-06-21 04:38] LABS: BASOPHILS % (AUTO) 0.3 % (0.0-2.0); EOSINOPHILS # (AUTO) 0.2 K/uL (0.0-0.7); EOSINOPHILS % (AUTO) 1.3 % (0.0-6.0); HEMATOCRIT 30 % (33-45); HEMOGLOBIN 9.4 g/dL (11.5-14.8); LYMPHOCYTES # (AUTO) 0.8 K/uL (0.8-4.8); LYMPHOCYTES % (AUTO) 5.2 % (20.0-44.0); MEAN CORPUSCULAR HEMOGLOBIN 28 PG (26.0-33.0); MEAN CORPUSCULAR HGB CONC 32 g/dl (31.0-36.0); MEAN CORPUSCULAR VOLUME 88 fL (82-100); MONOCYTES # (AUTO) 0.8 K/uL (0.1-1.30); MONOCYTES % (AUTO) 5.1 % (2.0-12.0); NEUTROPHILS # (AUTO) 14.1 K/uL (1.8-8.9); NEUTROPHILS % (AUTO) 88.1 % (43.0-81.0); PLATELET COUNT (AUTO) 258 K/uL (150-450); RED BLOOD CELL COUNT(AUTO) 3.36 MIL/uL (4.0-5.2); WHITE BLOOD COUNT (AUTO) 16.1 K/uL (4.3-11.0)
[2024-06-21 04:55] LABS: CALCIUM, SERUM 9.9 mg/dL (8.5-10.1); CARBON DIOXIDE 22 mmol/L (21-32); CHLORIDE 108 mmol/L (98-107); CREATININE 0.6 mg/dL (0.6-1.3); GLUCOSE 151 mg/dL (74-106); MAGNESIUM 2.1 mg/dL (1.8-2.4); PHOSPHORUS 3.1 mg/dL (2.5-4.9); POTASSIUM 3.5 mmol/L (3.5-5.1); SODIUM SERUM 138 mmol/L (136-145); UREA NITROGEN, BLOOD 27 mg/dL (7-18)
[2024-06-21] MEDS: AMIODARONE HCL 200 MG TABLET PO SCH (17:13)
[2024-06-22] VITALS (96 sets, daily range): BP systolic 83–147; BP diastolic 38–71; TEMP 97.7–99; O2SAT 96–100
[2024-06-22 04:38] LABS: CALCIUM, SERUM 9.6 mg/dL (8.5-10.1); CARBON DIOXIDE 19 mmol/L (21-32); CHLORIDE 112 mmol/L (98-107); CREATININE 0.8 mg/dL (0.6-1.3); GLUCOSE 166 mg/dL (74-106); SODIUM SERUM 140 mmol/L (136-145); UREA NITROGEN, BLOOD 29 mg/dL (7-18)
[2024-06-22] MEDS: GLUCERNA 1.2 1,000 ML BOTTLE NG PRN (06:22)
[2024-06-22 09:25] LABS: BASOPHILS # (AUTO) 0.1 K/uL (0.0-0.2); BASOPHILS % (AUTO) 0.6 % (0.0-2.0); EOSINOPHILS # (AUTO) 0.3 K/uL (0.0-0.7); EOSINOPHILS % (AUTO) 1.8 % (0.0-6.0); HEMATOCRIT 27 % (33-45); HEMOGLOBIN 8.6 g/dL (11.5-14.8); LYMPHOCYTES # (AUTO) 1.3 K/uL (0.8-4.8); MEAN CORPUSCULAR HEMOGLOBIN 28 PG (26.0-33.0); MEAN CORPUSCULAR HGB CONC 32 g/dl (31.0-36.0); MEAN CORPUSCULAR VOLUME 89 fL (82-100); MONOCYTES # (AUTO) 1.1 K/uL (0.1-1.30); MONOCYTES % (AUTO) 7.6 % (2.0-12.0); NEUTROPHILS # (AUTO) 11.8 K/uL (1.8-8.9); PLATELET COUNT (AUTO) 214 K/uL (150-450); RED BLOOD CELL COUNT(AUTO) 3.04 MIL/uL (4.0-5.2); RED CELL DISTRIBUTION WIDTH 16.4 % (11.5-15.0); WHITE BLOOD COUNT (AUTO) 14.6 K/uL (4.3-11.0)
[2024-06-22 09:39] LABS: CARBON DIOXIDE 19 mmol/L (21-32); CHLORIDE 112 mmol/L (98-107); CREATININE 0.4 mg/dL (0.6-1.3); GLUCOSE 136 mg/dL (74-106); POTASSIUM 4.1 mmol/L (3.5-5.1); SODIUM SERUM 138 mmol/L (136-145); UREA NITROGEN, BLOOD 26 mg/dL (7-18)
[2024-06-22 09:40] LABS: TRIGLYCERIDES 167 mg/dL (30-150)
[2024-06-23] VITALS (50 sets, daily range): BP systolic 105–154; BP diastolic 43–84; TEMP 97.9–98.7; O2SAT 91–100
[2024-06-23] MEDS ORDERED: DC PROPOFOL WHEN EXTUBATED XX PRN (08:00)
[2024-06-23 11:19] LABS: CARBON DIOXIDE 18 mmol/L (21-32); CHLORIDE 116 mmol/L (98-107); CREATININE 0.4 mg/dL (0.6-1.3); GLUCOSE 95 mg/dL (74-106); SODIUM SERUM 143 mmol/L (136-145); UREA NITROGEN, BLOOD 26 mg/dL (7-18)
[2024-06-24] VITALS (29 sets, daily range): BP systolic 113–183; BP diastolic 48–95; TEMP 97.3–98.5; O2SAT 95–100
[2024-06-24] MEDS ORDERED: hydrALAZINE HCL IV 20 MG VIAL IV PRN (05:30)
[2024-06-24 05:57] LABS: CALCIUM, SERUM 9.1 mg/dL (8.5-10.1); CARBON DIOXIDE 25 mmol/L (21-32); CHLORIDE 112 mmol/L (98-107); CREATININE 0.6 mg/dL (0.6-1.3); GLUCOSE 66 mg/dL (74-106); POTASSIUM 4.2 mmol/L (3.5-5.1); SODIUM SERUM 140 mmol/L (136-145); UREA NITROGEN, BLOOD 26 mg/dL (7-18)
[2024-06-25] VITALS (16 sets, daily range): BP systolic 103–147; BP diastolic 55–63; TEMP 97.3–97.7; O2SAT 92–100
[2024-06-25 07:01] LABS: CALCIUM, SERUM 10.3 mg/dL (8.5-10.1); CARBON DIOXIDE 17 mmol/L (21-32); CHLORIDE 112 mmol/L (98-107); CREATININE 0.5 mg/dL (0.6-1.3); GLUCOSE 61 mg/dL (74-106); POTASSIUM 4.7 mmol/L (3.5-5.1); SODIUM SERUM 142 mmol/L (136-145); UREA NITROGEN, BLOOD 23 mg/dL (7-18)
[2024-06-25] MEDS ORDERED: DEXTROSE 50%-WATER 50 ML DISP.SYRIN IV PRN (07:30)
[2024-06-25] MEDS ORDERED: INSULIN REGULAR, HUMAN 100 UNIT/ML 3 ML VIAL SQ PRN (07:30)
[2024-06-25] MEDS: IV D5/ 0.9% NACL 1,000 ML IV PRN (07:47)
[2024-06-25] MEDS: BLOOD SUGAR DIAGNOSTIC 1 EACH STRIP IN SCH (12:20)
[2024-06-26] VITALS (16 sets, daily range): BP systolic 93–130; BP diastolic 34–78; TEMP 92.2–97.9; O2SAT 90–98
[2024-06-26 06:46] LABS: CALCIUM, SERUM 10.3 mg/dL (8.5-10.1); CARBON DIOXIDE 22 mmol/L (21-32); CHLORIDE 110 mmol/L (98-107); CREATININE 0.6 mg/dL (0.6-1.3); GLUCOSE 165 mg/dL (74-106); POTASSIUM 4.5 mmol/L (3.5-5.1); SODIUM SERUM 139 mmol/L (136-145); UREA NITROGEN, BLOOD 23 mg/dL (7-18)
[2024-06-27] VITALS (10 sets, daily range): BP systolic 63–71; BP diastolic 34–39; TEMP 95.1; O2SAT 94–98
[2024-06-27 07:16] LABS: CALCIUM, SERUM 10.5 mg/dL (8.5-10.1); CARBON DIOXIDE 23 mmol/L (21-32); CHLORIDE 117 mmol/L (98-107); CREATININE 0.8 mg/dL (0.6-1.3); GLUCOSE 238 mg/dL (74-106); POTASSIUM 4.8 mmol/L (3.5-5.1); SODIUM SERUM 146 mmol/L (136-145); UREA NITROGEN, BLOOD 28 mg/dL (7-18)
== END 2024-06-27 14:00 | disposition hospice, inpatient (51) | DRG 870 ==
LOC: ER 09:55 → ICU 19:18 → MED 06-24 12:30
PROVIDERS: ADMIT Nurse Practitioner Acute Care; ATTEND Internal Medicine
PROC: 5A1945Z Respiratory Ventilation, 24-96 Consecutive Hours (ICD-10-PCS; principal; 2024-06-15)
PROC: 0BH17EZ Insertion of Endotracheal Airway into Trachea, Via Natural or Artificial Opening (ICD-10-PCS; 2024-06-15)
PROC: 02HV33Z Insertion of Infusion Device into Superior Vena Cava, Percutaneous Approach (ICD-10-PCS; 2024-06-16)
PROC: B548ZZA Ultrasonography of Superior Vena Cava, Guidance (ICD-10-PCS; 2024-06-16)
PROC: 5A1955Z Respiratory Ventilation, Greater than 96 Consecutive Hours (ICD-10-PCS; 2024-06-18)
PROC: 0BH17EZ Insertion of Endotracheal Airway into Trachea, Via Natural or Artificial Opening (ICD-10-PCS; 2024-06-18)
DX: A41.9 Sepsis, unspecified organism (principal); G92.8 Other toxic encephalopathy; J96.01 Acute respiratory failure with hypoxia; J96.02 Acute respiratory failure with hypercapnia; I50.33 Acute on chronic diastolic (congestive) heart failure; R65.21 Severe sepsis with septic shock; E44.0 Moderate protein-calorie malnutrition; N17.9 Acute kidney failure, unspecified; E87.1 Hypo-osmolality and hyponatremia; E87.4 Mixed disorder of acid-base balance; N39.0 Urinary tract infection, site not specified; F05 Delirium due to known physiological condition; Z68.1 Body mass index [BMI] 19.9 or less, adult; Z16.24 Resistance to multiple antibiotics; J98.11 Atelectasis; R62.7 Adult failure to thrive; E87.6 Hypokalemia; I11.0 Hypertensive heart disease with heart failure; D64.9 Anemia, unspecified; E78.5 Hyperlipidemia, unspecified; E83.52 Hypercalcemia; E86.0 Dehydration; E86.1 Hypovolemia; I25.2 Old myocardial infarction; I48.0 Paroxysmal atrial fibrillation; M81.0 Age-related osteoporosis without current pathological fracture; M89.8X9 Other specified disorders of bone, unspecified site; Z79.84 Long term (current) use of oral hypoglycemic drugs; Z66 Do not resuscitate; Z88.2 Allergy status to sulfonamides; E11.9 Type 2 diabetes mellitus without complications; L89.616 Pressure-induced deep tissue damage of right heel; E86.9 Volume depletion, unspecified; L89.156 Pressure-induced deep tissue damage of sacral region; Z22.322 Carrier or suspected carrier of Methicillin resistant Staphylococcus aureus; B96.89 Other specified bacterial agents as the cause of diseases classified elsewhere; T17.990A Other foreign object in respiratory tract, part unspecified in causing asphyxiation, initial encounter; W44.F9XA Other object of natural or organic material, entering into or through a natural orifice, initial encounter; Y93.9 Activity, unspecified; Y92.89 Other specified places as the place of occurrence of the external cause; Z87.01 Personal history of pneumonia (recurrent)
CPT/HCPCS: 31720; 36415; 36600; 71045-TC; 74018; 76770-TC; 80048-TC; 80053-TC; 80061-TC; 80076-TC; 80202-TC; 81001; 82550-TC; 82803-TC; 82962-TC; 83605-TC; 83735-TC; 83880; 83970; 84100-TC; 84132-TC; 84155; 84165; 84443-TC; 84478-TC; 84484-TC; 85025-TC; 85730-TC; 87040-TC; 87081-TC; 87086-TC; 93307-TC; 93970-TC; 94002-TC; 94003-TC; 94640-TC; 94760-TC; 94762-TC; 94799-TC; 99082-TC; A4223; A9563; G0378; J0282; J0692; J1650; J1815; J2185; J3370; J3371; J3475; J3480; J3490; J7030; J7040; J7042; J7050; J7060

== ENCOUNTER 2024-06-27 14:53 | Inpatient (IN) | payer OTHER ==
[~2024-06-27 14:53] MED LIST changes: +ACET-868 PO; +ASCO-352 PO; +CHOL200026 PO; +DEXT15DR23 EACHEYE; +FURO-144 PO; +MAGN400O6 PO; +MODAFINIL PO; +PETR113O TP; +ZINC220C6 PO; +ZINC57OI4 TP
[2024-06-27] MEDS ORDERED: ACETAMINOPHEN 650 MG/SUPP.RECT RC PRN (15:30)
[2024-06-27] MEDS ORDERED: MORPHINE SULFATE INJ 2 MG/ML DISP.SYRIN IV PRN (15:30)
== END 2024-06-27 15:23 | DRG 951 ==
LOC: HOSPICE 14:53 → MED 14:53 → UNDOADMIN 14:53
PROVIDERS: ADMIT Internal Medicine; ATTEND Internal Medicine
DX: Z51.5 Encounter for palliative care (principal); A41.9 Sepsis, unspecified organism; G93.41 Metabolic encephalopathy; I50.33 Acute on chronic diastolic (congestive) heart failure; J96.01 Acute respiratory failure with hypoxia; J18.9 Pneumonia, unspecified organism; N17.9 Acute kidney failure, unspecified; N39.0 Urinary tract infection, site not specified; J98.19 Other pulmonary collapse; E44.0 Moderate protein-calorie malnutrition; I11.0 Hypertensive heart disease with heart failure; Z66 Do not resuscitate; D64.9 Anemia, unspecified; E78.5 Hyperlipidemia, unspecified; E87.6 Hypokalemia; M81.0 Age-related osteoporosis without current pathological fracture; I48.91 Unspecified atrial fibrillation; E11.9 Type 2 diabetes mellitus without complications; I25.2 Old myocardial infarction; Z88.2 Allergy status to sulfonamides; L89.156 Pressure-induced deep tissue damage of sacral region
CPT/HCPCS: G0378